=== PATIENT | female | born 1935 | race Caucasian/White ===

== ENCOUNTER 2021-03-23 21:53 | Inpatient (IN) | payer MEDICARE, BC ==
[2021-03-23 23:12] LABS: ANION GAP 11.1 meq/L (7-15); CHLORIDE,CL 107 mmol/L (98-107); SODIUM,NA 142 mmol/L (136-145)
--- NOTE | 2021-03-23 23:25 | EDM.PDOC ---
ED HPI GENERAL MEDICAL PROBLEM - General Chief Complaint: General Stated Complaint: weakness Time Seen by Provider: 03/23/21 22:05 Source of Information: Reports: Patient, Family History Limitations: Reports: No Limitations - History of Present Illness INITIAL COMMENTS - FREE TEXT/NARRATIVE: Patient brought to ER with complaint of weakness for last week. Usually can get around home reasonably well with a walker. Now has to get assistance with getting up/ADLs and can't go more than a few steps without needing to stop and rest. Similar episode happened around a year ago but resolved on own with no other intervention. Did not seek medical help at that time. No other specific changes noted by family or patient. She did vomit once today but blamed it on the [employer] her daughter gave her to eat. Lives with daughter. Patient has lost over 50 pounds gradually over the past few years, is not trying to lose weight. No fevers/chills. No HEENT changes/headaches/URI complaints/visual changes No new SOB/cough/pleuritic pain No chest pain/palpitations/dizziness/worsening edema. Has chronic lower leg edema bilaterally. No other vomiting. No diarrhea/bowel changes/blood in stool No UTI complaints/hematuria/abdominal pain No new limb pain but has history of rheumatoid arthritis and feels that has been acting up a bit more lately No focal neuro changes noted. Did run out of her Methylprednisolone a few months ago and restarted her usual 4mg dose around 6 days ago. - Related Data Allergies Allergy/AdvReac Type Severity Reaction Status Date / Time Influenza Virus Vaccines Allergy Swelling Verified 03/24/21 00:47 morphine Allergy Vomiting Verified 03/23/21 23:47 tramadol Allergy Nausea and Verified 03/24/21 00:47 Vomiting environmental allergies Allergy Sneezing Uncoded 03/24/21 00:47 Home Meds: Home Meds Furosemide [Lasix] 20 mg PO DAILY PRN 03/23/21 [History] Hydroxychloroquine [Plaquenil] 200 mg PO DAILY 03/23/21 [History] hydrALAZINE [Apresoline] 25 mg PO DAILY 03/23/21 [History] methylPREDNISolone [Methylprednisolone] 4 mg PO DAILY 03/23/21 [History] Past Medical History Cardiovascular History: Reports: Other (See Below) (chronic lower extremity edema bilaterally) Genitourinary History: Reports: Chronic Renal Insuffiency Musculoskeletal History: Reports: Osteoarthritis, RA, Other (See Below) (chronic weakness) Endocrine/Metabolic History: Reports: Diabetes, Type II Hematologic History: Reports: B12 Deficiency, Blood Transfusion(s), Other (See Below) (anemia of chronic disease and pernicious anemia) Oncologic (Cancer) History: Reports: Breast Social & Family History - Family History Family Medical History: No Pertinent Family History - Tobacco Use Tobacco Use Status *Q: Never Tobacco User - Caffeine Use Caffeine Use: Reports: None - Alcohol Use Alcohol Use History: No - Recreational Drug Use Recreational Drug Use: No Drug Use in Last 12 Months: No ED ROS GENERAL - Review of Systems Review Of Systems: Comprehensive ROS is negative, except as noted in HPI. ED EXAM, GENERAL - Physical Exam Exam: See Below Exam Limited By: No Limitations General Appearance: Alert, No Apparent Distress Eye Exam: Bilateral Eye: EOMI, PERRL Ears: Normal External Exam, Normal Canal, Hearing Grossly Normal Nose: No: Nasal Deformity, Nasal Swelling, Nasal Drainage Throat/Mouth: Normal Lips, Normal Voice, No Airway Compromise Head: Atraumatic, Normocephalic Neck: Normal Inspection, Supple, Non-Tender, Full Range of Motion. No: Lymphadenopathy (L), Lymphadenopathy (R) Respiratory/Chest: No Respiratory Distress, No Accessory Muscle Use, Chest Non- Tender, Wheezing (very minimal wheeze noted right anterior lung) Cardiovascular: Regular Rate, Rhythm, No Murmur GI/Abdominal: Normal Bowel Sounds, Soft, Non-Tender, No Distention (Female) Exam: Deferred Rectal (Female) Exam: Deferred Back Exam: No: CVA Tenderness (L), CVA Tenderness (R), Muscle Spasm, Paraspinal Tenderness, Vertebral Tenderness Extremities: Non-Tender, Normal Capillary Refill, Pedal Edema Neurological: Oriented, Normal Cognition, Other (equal tone/strength bilaterally) Psychiatric: Normal Affect, Normal Mood Skin Exam: Warm, Dry, Intact, Other (pale) Course - Vital Signs Last Recorded V/S: Last Vital Signs Temp 36.9 C 03/23/21 22:10 Pulse 78 03/23/21 22:10 Resp 18 03/23/21 22:10 BP 124/69 03/23/21 22:10 Pulse Ox 99 03/23/21 22:10 - Orders/Labs/Meds Orders: Active Orders 24 hr Category Date Time Status EKG Documentation Completion [RC] ASDIRECTED Care 03/23/21 23:16 Ordered Chest 2V [CR] Stat Exams 03/23/21 22:05 Taken CORONAVIRUS COVID-19 CHANEL [MOLEC] Stat Lab 03/23/21 23:15 Received HEPATITIS PANEL (4) [REF] Routine Lab 03/23/21 23:30 Ordered Isolation [COMM] Routine Oth 03/23/21 22:08 Active EKG 12 Lead [EK] Routine Ther 03/23/21 23:16 Ordered Labs: Laboratory Tests 03/23/21 03/23/21 03/23/21 Range/Units 22:40 22:40 22:40 WBC 16.4 H (4.0-10.2) K/uL RBC 3.21 L (3.77-5.09) M/uL Hgb 10.6 L (11.7-15.5) g/dL Hct 33.3 L (34.0-46.0) % MCV 103.7 H (84.0-98.0) fL MCH 33.0 (28.2-33.3) pg MCHC 31.8 (31.7-36.0) g/dL RDW 12.9 (11.2-14.1) % Plt Count 212 (150-350) K/uL Neut % (Auto) 90.5 H (45.0-80.0) % Lymph % (Auto) 4.3 L (10.0-50.0) % Ralls % (Auto) 5.1 (2.0-14.0) % Eos % (Auto) 0.0 (0.0-5.0) % Baso % (Auto) 0.1 (0.0-2.0) % Neut # (Auto) 14.81 H (1.40-7.00) K/uL Lymph # (Auto) 0.70 (0.50-3.50) K/uL Ralls # (Auto) 0.83 (0.00-1.00) K/uL Eos # (Auto) 0.00 (0.00-0.50) K/uL Baso # (Auto) 0.01 (0.00-0.20) K/uL Sodium 142 (136-145) mmol/L Potassium 4.5 (3.5-5.1) mmol/L Chloride 107 (98-107) mmol/L Carbon Dioxide 23.9 (21.0-32.0) mmol/L Anion Gap 11.1 (7-15) meq/L BUN 29 H (7-18) mg/dL Creatinine 1.61 H (0.51-1.17) mg/dL Est Cr Clr Drug Dosing TNP Estimated GFR (MDRD) 30 mL/min Glucose 121 H (70-99) mg/dL Lactic Acid 1.6 (0.4-2.0) mmol/L Calcium 8.8 (8.5-10.1) mg/dL Magnesium 1.6 L (1.8-2.4) mg/dL Total Bilirubin 3.3 H (0.2-1.0) mg/dL AST 192 H (15-37) U/L ALT 153 H (12-78) U/L Alkaline Phosphatase 192 H (46-116) IU/L Troponin I High Sens 67 H* (<=51) ng/L NT-Pro-B Natriuret Pep 17696 H (0-125) pg/mL Total Protein 6.6 (6.4-8.2) g/dL Albumin 2.9 L (3.4-5.0) g/dL Amylase (25-115) U/L Lipase (73-393) U/L TSH, Ultra Sensitive (0.358-3.740) mIU/mL Specimen Type Urine Color Urine Appearance Urine pH (5.0-9.0) Ur Specific [place] (1.005-1.030) Urine Protein (NEGATIVE) mg/dL Urine Glucose (UA) (NEGATIVE) mg/dL Urine Ketones (NEGATIVE) mg/dL Urine Occult Blood (NEGATIVE) Urine Nitrite (NEGATIVE) Urine Bilirubin (NEGATIVE) Urine Urobilinogen (0.2-1.0) E.U./dL Ur Leukocyte Esterase (NEGATIVE) Urine RBC /HPF Urine WBC /HPF Ur Epithelial Cells /LPF Urine Bacteria (NONE TO FEW) /HPF SARS-CoV-2 Ag (Rapid) (NEGATIVE) 03/23/21 03/23/21 03/23/21 Range/Units 22:40 22:40 22:40 WBC (4.0-10.2) K/uL RBC (3.77-5.09) M/uL Hgb (11.7-15.5) g/dL Hct (34.0-46.0) % MCV (84.0-98.0) fL MCH (28.2-33.3) pg MCHC (31.7-36.0) g/dL RDW (11.2-14.1) % Plt Count (150-350) K/uL Neut % (Auto) (45.0-80.0) % Lymph % (Auto) (10.0-50.0) % Ralls % (Auto) (2.0-14.0) % Eos % (Auto) (0.0-5.0) % Baso % (Auto) (0.0-2.0) % Neut # (Auto) (1.40-7.00) K/uL Lymph # (Auto) (0.50-3.50) K/uL Ralls # (Auto) (0.00-1.00) K/uL Eos # (Auto) (0.00-0.50) K/uL Baso # (Auto) (0.00-0.20) K/uL Sodium (136-145) mmol/L Potassium (3.5-5.1) mmol/L Chloride (98-107) mmol/L Carbon Dioxide (21.0-32.0) mmol/L Anion Gap (7-15) meq/L BUN (7-18) mg/dL Creatinine (0.51-1.17) mg/dL Est Cr Clr Drug Dosing Estimated GFR (MDRD) mL/min Glucose (70-99) mg/dL Lactic Acid (0.4-2.0) mmol/L Calcium (8.5-10.1) mg/dL Magnesium (1.8-2.4) mg/dL Total Bilirubin (0.2-1.0) mg/dL AST (15-37) U/L ALT (12-78) U/L Alkaline Phosphatase (46-116) IU/L Troponin I High Sens (<=51) ng/L NT-Pro-B Natriuret Pep (0-125) pg/mL Total Protein (6.4-8.2) g/dL Albumin (3.4-5.0) g/dL Amylase > 650 H (25-115) U/L Lipase > 1500 H (73-393) U/L TSH, Ultra Sensitive 0.986 (0.358-3.740) mIU/mL Specimen Type Urine Color Urine Appearance Urine pH (5.0-9.0) Ur Specific [place] (1.005-1.030) Urine Protein (NEGATIVE) mg/dL Urine Glucose (UA) (NEGATIVE) mg/dL Urine Ketones (NEGATIVE) mg/dL Urine Occult Blood (NEGATIVE) Urine Nitrite (NEGATIVE) Urine Bilirubin (NEGATIVE) Urine Urobilinogen (0.2-1.0) E.U./dL Ur Leukocyte Esterase (NEGATIVE) Urine RBC /HPF Urine WBC /HPF Ur Epithelial Cells /LPF Urine Bacteria (NONE TO FEW) /HPF SARS-CoV-2 Ag (Rapid) (NEGATIVE) 03/23/21 03/23/21 Range/Units 23:15 23:20 WBC (4.0-10.2) K/uL RBC (3.77-5.09) M/uL Hgb (11.7-15.5) g/dL Hct (34.0-46.0) % MCV (84.0-98.0) fL MCH (28.2-33.3) pg MCHC (31.7-36.0) g/dL RDW (11.2-14.1) % Plt Count (150-350) K/uL Neut % (Auto) (45.0-80.0) % Lymph % (Auto) (10.0-50.0) % Ralls % (Auto) (2.0-14.0) % Eos % (Auto) (0.0-5.0) % Baso % (Auto) (0.0-2.0) % Neut # (Auto) (1.40-7.00) K/uL Lymph # (Auto) (0.50-3.50) K/uL Ralls # (Auto) (0.00-1.00) K/uL Eos # (Auto) (0.00-0.50) K/uL Baso # (Auto) (0.00-0.20) K/uL Sodium (136-145) mmol/L Potassium (3.5-5.1) mmol/L Chloride (98-107) mmol/L Carbon Dioxide (21.0-32.0) mmol/L Anion Gap (7-15) meq/L BUN (7-18) mg/dL Creatinine (0.51-1.17) mg/dL Est Cr Clr Drug Dosing Estimated GFR (MDRD) mL/min Glucose (70-99) mg/dL Lactic Acid (0.4-2.0) mmol/L Calcium (8.5-10.1) mg/dL Magnesium (1.8-2.4) mg/dL Total Bilirubin (0.2-1.0) mg/dL AST (15-37) U/L ALT (12-78) U/L Alkaline Phosphatase (46-116) IU/L Troponin I High Sens (<=51) ng/L NT-Pro-B Natriuret Pep (0-125) pg/mL Total Protein (6.4-8.2) g/dL Albumin (3.4-5.0) g/dL Amylase (25-115) U/L Lipase (73-393) U/L TSH, Ultra Sensitive (0.358-3.740) mIU/mL Specimen Type Urinblad Urine Color Dark yellow Urine Appearance Slightly cloudy Urine pH 5.0 (5.0-9.0) Ur Specific [place] 1.025 (1.005-1.030) Urine Protein 30 H (NEGATIVE) mg/dL Urine Glucose (UA) Negative (NEGATIVE) mg/dL Urine Ketones Trace H (NEGATIVE) mg/dL Urine Occult Blood Trace-lysed H (NEGATIVE) Urine Nitrite Positive H (NEGATIVE) Urine Bilirubin Small H (NEGATIVE) Urine Urobilinogen 0.2 (0.2-1.0) E.U./dL Ur Leukocyte Esterase Negative (NEGATIVE) Urine RBC 0-5 /HPF Urine WBC 0-5 /HPF Ur Epithelial Cells Few /LPF Urine Bacteria Many H (NONE TO FEW) /HPF SARS-CoV-2 Ag (Rapid) Negative (NEGATIVE) - Radiology Interpretation Free Text/Narrative:: No acute focal infiltrates noted on chest xray. Heart appears mildly enlarged. No acute fluid overload noted. - Re-Assessments/Exams Free Text/Narrative Re-Assessment/Exam: 03/24/21 00:26 Xray unremarkable for acute changes. Vital signs stable. Normal lactic acid. Negative influenza/Covid. UA negative for UTI Multiple abnormalities noted on labs: WBC 16.4 Cr 1.61 (1.43 01/04/21) AST 192 ALT 153 Alk Phos 192 Total Bili 3.3 (all normal when tested two months ago) Amylase > 650 and Lipase>1500 Trop mildly elevated at 67 ProBNP 56420 Patient denies previous diagnosis of CHF/no history of cardiac echo Patient denies abdominal pain/fever. Did have the episode of emesis earlier today. Given the elevated LFTs/amylase and lipase patient appears to have pancreatitis. Suspect minimal elevation in troponin secondary to CHF. Pt denies angina/chest pain complaints. Will add EKG and order serial troponins. Given patient's history of cancer and slow weight loss/painless pancreatitis/increasing weakness CT scan for further evaluation would be ideal. Plan at this time is to admit to inpatient and provide IV fluids. This should help improve creatinine level and allow a safer CT scan given pt's chronic renal disease. Patient and family agreeable with plan. Consult PT/OT for eval on Thursday. Departure - Departure Time of Disposition: 00:35 Disposition: Admitted As Inpatient 65 Condition: Good Clinical Impression: Hepatitis Pancreatitis Qualifiers: Chronicity: acute Pancreatitis type: unspecified pancreatitis type Acute pancreatitis complication: unspecified Qualified Code(s): K85.90 - Acute pancreatitis without necrosis or infection, unspecified - Discharge Information *PRESCRIPTION DRUG MONITORING PROGRAM REVIEWED*: Not Applicable *COPY OF PRESCRIPTION DRUG MONITORING REPORT IN PATIENT [place]: Not Applicable Forms: ED Department Discharge Sepsis Event Note (ED) - Focused Exam Vital Signs: Vital Signs Temp Pulse Resp BP Pulse Ox 03/23/21 22:10 36.9 C 78 18 124/69 99 - Problem List & Annotations (1) Pancreatitis SNOMED Code(s): 12717555 Code(s): K85.90 - ACUTE PANCREATITIS WITHOUT NECROSIS OR INFECTION, UNSP Status: Acute Priority: High Current Visit: Yes Onset Date: ~03/17/21 Annotation/Comment:: Elevated amylase/lipase and LFTs. Will place patient NPO overnight and give IV fluids. Planned CT study of chest/abdomen in AM for further evaluation Qualifiers: Chronicity: acute Pancreatitis type: unspecified pancreatitis type Acute pancreatitis complication: unspecified Qualified Code(s): K85.90 - Acute pancreatitis without necrosis or infection, unspecified (2) Hepatitis SNOMED Code(s): 496062746 Code(s): K75.9 - INFLAMMATORY LIVER DISEASE, UNSPECIFIED Status: Acute Priority: High Current Visit: Yes Annotation/Comment:: as above. Hepatitis panel has been ordered. (3) Elevated troponin SNOMED Code(s): 669997892, 622264357, 042399578 Code(s): R77.8 - OTHER SPECIFIED ABNORMALITIES OF PLASMA PROTEINS Status: Acute Priority: High Current Visit: Yes Annotation/Comment:: Minimal elevation of troponin. Patient denies chest pain/anginal symptoms. Suspect it is elevated secondary to CHF. Will order serial troponins/EKG and continue to monitor (4) CHF (congestive heart failure) SNOMED Code(s): 74595758 Code(s): I50.9 - HEART FAILURE, UNSPECIFIED Status: Chronic Priority: Low Current Visit: Yes Annotation/Comment:: No previous diagnosis of CHF per patient. She is supposed to be taking Lasix however and rarely takes it as prescribed. Has significantly elevated ProBNP and chronic lower extremity edema. No evidence of acute increased fluid overload however. No cardiac echo found on her [facility] chart. Patient will need to be scheduled for cardiac echo. Regular lasix to be ordered during inpatient stay with close attention to potential worsening of BUN/Cr. Qualifiers: Heart failure type: unspecified Heart failure chronicity: chronic Qualified Code(s): I50.9 - Heart failure, unspecified (5) Rheumatoid arthritis SNOMED Code(s): 07827597 Code(s): M06.9 - RHEUMATOID ARTHRITIS, UNSPECIFIED Status: Chronic Priority: Low Current Visit: Yes Annotation/Comment:: Continue home medications. Mild worsening of symptoms this past week. Just was restarted on steroids. Qualifiers: Rheumatoid arthritis location: multiple sites Rheumatoid factor presence: unspecified presence Qualified Code(s): M06.9 - Rheumatoid arthritis, unspecified (6) Chronic kidney disease SNOMED Code(s): 490666095 Code(s): N18.9 - CHRONIC KIDNEY DISEASE, UNSPECIFIED Status: Chronic Priority: Medium Current Visit: Yes Annotation/Comment:: Creatinine 1.61 this evening. Will give IV fluids overnight prior to planned CT of chest and abdomen in AM. Recheck creatinine in AM. Qualifiers: Chronic kidney disease stage: stage 3 (moderate) (7) Diabetes mellitus type 2, noninsulin dependent SNOMED Code(s): 32751798 Code(s): E11.9 - TYPE 2 DIABETES MELLITUS WITHOUT COMPLICATIONS Status: Chronic Priority: Low Current Visit: Yes Annotation/Comment:: Accuch ecks/monitor trends. (8) Anemia of chronic disease SNOMED Code(s): 495171429 Code(s): D63.8 - ANEMIA IN OTHER CHRONIC DISEASES CLASSIFIED ELSEWHERE Status: Chronic Priority: Low Current Visit: Yes Annotation/Comment:: Sta ble per history. (9) Pernicious anemia SNOMED Code(s): 28607960 Code(s): D51.0 - VITAMIN B12 DEFIC ANEMIA DUE TO INTRINSIC FACTOR DEFICIENCY Status: Chronic Priority: Low Current Visit: Yes Annotation/Comment:: Stable per history. Hgb 11.26 December 2020. 10.6 today (10) Weakness SNOMED Code(s): 58700071 Code(s): R53.1 - WEAKNESS Status: Chronic Priority: Medium Current Visit: Yes Annotation/Comment:: Chronic weakness that signficantly worsened this past week. PT and OT to assess Thursday. Suspect acute worsening is related to pancreatitis. (11) Urinary bladder incontinence SNOMED Code(s): 990053861 Code(s): R32 - UNSPECIFIED URINARY INCONTINENCE Status: Chronic Priority: Low Current Visit: Yes Annotation/Comment:: Patient wears briefs and they do get wet. Has some redness and irritation in jonas area. Will have nursing apply Nystatin/Triamcinolone topically and assess for response. Qualifiers: Urinary Incontinence type: mixed stress and urge incontinence Qualified Code(s): N39.46 - Mixed incontinence - Problem List Review Problem List Initiated/Reviewed/Updated: Yes - My Orders Last 24 Hours: My Active Orders 03/23/21 22:05 Chest 2V [CR] Stat 03/23/21 22:08 Isolation [COMM] Routine 03/23/21 23:15 CORONAVIRUS COVID-19 CHANEL [MOLEC] Stat 03/23/21 23:16 EKG Documentation Completion [RC] ASDIRECTED EKG 12 Lead [EK] Routine 03/23/21 23:30 HEPATITIS PANEL (4) [REF] Routine - Assessment/Plan Admission H&P: Please use this note as an admission H&P Last 24 Hours: My Active Orders 03/23/21 22:05 Chest 2V [CR] Stat 03/23/21 22:08 Isolation [COMM] Routine 03/23/21 23:15 CORONAVIRUS COVID-19 CHANEL [MOLEC] Stat 03/23/21 23:16 EKG Documentation Completion [RC] ASDIRECTED EKG 12 Lead [EK] Routine 03/23/21 23:30 HEPATITIS PANEL (4) [REF] Routine Assessment:: as above. Plan: as above. IV fluids overnight and planned CT scan in AM for further evaluation. Anticipate 3-4 day stay with possible need for Swing bed depending upon clinical course.
[2021-03-24] MEDS ORDERED: Ondansetron 4 MG/2 ML SDV IVPUSH PRN (00:56)
[2021-03-24] MEDS ORDERED: Dextrose 5%-0.45% NaCl 1,000 ML IV SCH (01:00)
[2021-03-24] MEDS ORDERED: Sodium Chloride 0.9% 10 ML Syringe FLUSH PRN (04:33)
[2021-03-24] MEDS: Nystatin Crm 30 GM Tube TOP SCH ×3 (05:24→21:46)
[2021-03-24] MEDS: hydrALAZINE 50 MG Tab PO SCH (09:30)
[2021-03-24] MEDS: Hydroxychloroquine 200 MG Tab PO SCH (09:31)
[2021-03-24 09:36] LABS: ANION GAP 11.8 meq/L (7-15)
[2021-03-24] MEDS ORDERED: Iopamidol 612 MG/ML 100 ML Bottle IVPUSH ONE (11:01)
--- NOTE | 2021-03-24 17:32 | PCM.PN ---
- General Info Date of Service: 03/24/21 Admission Dx/Problem (Free Text): Pancreatitis, weakness Subjective Update: Pt feels better today. Has improved appetite. No new pain. Functional Status: Reports: Pain Controlled, Tolerating Diet, Ambulating (with assistance). Denies: New Symptoms - Review of Systems General: Reports: Weakness, Fatigue. Denies: Fever, Malaise, Chills, Night Sweats HEENT: Reports: No Symptoms Pulmonary: Reports: No Symptoms. Denies: Shortness of Breath Cardiovascular: Reports: No Symptoms. Denies: Chest Pain, Palpitations Gastrointestinal: Reports: Other (only has RUQ pain with palpation, not at rest). Denies: Diarrhea, Melena, Nausea, Vomiting Genitourinary: Reports: No Symptoms Musculoskeletal: Reports: Other (no acute changes from baseline) Skin: Reports: Other (no acute changes) Neurological: Reports: No Symptoms Psychiatric: Reports: No Symptoms - Patient Data Vitals - Most Recent: Last Vital Signs Temp 36.4 C 03/24/21 08:00 Pulse 76 03/24/21 08:00 Resp 20 03/24/21 08:00 BP 121/63 03/24/21 09:30 Pulse Ox 94 L 03/24/21 08:00 Weight - Most Recent: 65.771 kg I&O - Last 24 Hours: Intake & Output 03/24/21 03/24/21 03/24/21 06:59 14:59 22:59 Intake Total 150 Output Total 300 Balance -150 Lab Results Last 24 Hours: Laboratory Results - last 24 hr 03/23/21 03/23/21 03/23/21 Range/Units 22:40 22:40 22:40 WBC 16.4 H (4.0-10.2) K/uL RBC 3.21 L (3.77-5.09) M/uL Hgb 10.6 L (11.7-15.5) g/dL Hct 33.3 L (34.0-46.0) % MCV 103.7 H (84.0-98.0) fL MCH 33.0 (28.2-33.3) pg MCHC 31.8 (31.7-36.0) g/dL RDW 12.9 (11.2-14.1) % Plt Count 212 (150-350) K/uL Neut % (Auto) 90.5 H (45.0-80.0) % Lymph % (Auto) 4.3 L (10.0-50.0) % [place] % (Auto) 5.1 (2.0-14.0) % Eos % (Auto) 0.0 (0.0-5.0) % Baso % (Auto) 0.1 (0.0-2.0) % Neut # (Auto) 14.81 H (1.40-7.00) K/uL Lymph # (Auto) 0.70 (0.50-3.50) K/uL [place] # (Auto) 0.83 (0.00-1.00) K/uL Eos # (Auto) 0.00 (0.00-0.50) K/uL Baso # (Auto) 0.01 (0.00-0.20) K/uL Sodium 142 (136-145) mmol/L Potassium 4.5 (3.5-5.1) mmol/L Chloride 107 (98-107) mmol/L Carbon Dioxide 23.9 (21.0-32.0) mmol/L Anion Gap 11.1 (7-15) meq/L BUN 29 H (7-18) mg/dL Creatinine 1.61 H (0.51-1.17) mg/dL Est Cr Clr Drug Dosing TNP Estimated GFR (MDRD) 30 mL/min Glucose 121 H (70-99) mg/dL POC Glucose (70-99) mg/dL Lactic Acid 1.6 (0.4-2.0) mmol/L Calcium 8.8 (8.5-10.1) mg/dL Magnesium 1.6 L (1.8-2.4) mg/dL Total Bilirubin 3.3 H (0.2-1.0) mg/dL AST 192 H (15-37) U/L ALT 153 H (12-78) U/L Alkaline Phosphatase 192 H (46-116) IU/L Troponin I High Sens 67 H* (<=51) ng/L NT-Pro-B Natriuret Pep 05102 H (0-125) pg/mL Total Protein 6.6 (6.4-8.2) g/dL Albumin 2.9 L (3.4-5.0) g/dL Amylase (25-115) U/L Lipase (73-393) U/L TSH, Ultra Sensitive (0.358-3.740) mIU/mL Specimen Type Urine Color Urine Appearance Urine pH (5.0-9.0) Ur Specific [place] (1.005-1.030) Urine Protein (NEGATIVE) mg/dL Urine Glucose (UA) (NEGATIVE) mg/dL Urine Ketones (NEGATIVE) mg/dL Urine Occult Blood (NEGATIVE) Urine Nitrite (NEGATIVE) Urine Bilirubin (NEGATIVE) Urine Urobilinogen (0.2-1.0) E.U./dL Ur Leukocyte Esterase (NEGATIVE) Urine RBC /HPF Urine WBC /HPF Ur Epithelial Cells /LPF Urine Bacteria (NONE TO FEW) /HPF SARS-CoV-2 Ag (Rapid) (NEGATIVE) 03/23/21 03/23/21 03/23/21 Range/Units 22:40 22:40 22:40 WBC (4.0-10.2) K/uL RBC (3.77-5.09) M/uL Hgb (11.7-15.5) g/dL Hct (34.0-46.0) % MCV (84.0-98.0) fL MCH (28.2-33.3) pg MCHC (31.7-36.0) g/dL RDW (11.2-14.1) % Plt Count (150-350) K/uL Neut % (Auto) (45.0-80.0) % Lymph % (Auto) (10.0-50.0) % [place] % (Auto) (2.0-14.0) % Eos % (Auto) (0.0-5.0) % Baso % (Auto) (0.0-2.0) % Neut # (Auto) (1.40-7.00) K/uL Lymph # (Auto) (0.50-3.50) K/uL [place] # (Auto) (0.00-1.00) K/uL Eos # (Auto) (0.00-0.50) K/uL Baso # (Auto) (0.00-0.20) K/uL Sodium (136-145) mmol/L Potassium (3.5-5.1) mmol/L Chloride (98-107) mmol/L Carbon Dioxide (21.0-32.0) mmol/L Anion Gap (7-15) meq/L BUN (7-18) mg/dL Creatinine (0.51-1.17) mg/dL Est Cr Clr Drug Dosing Estimated GFR (MDRD) mL/min Glucose (70-99) mg/dL POC Glucose (70-99) mg/dL Lactic Acid (0.4-2.0) mmol/L Calcium (8.5-10.1) mg/dL Magnesium (1.8-2.4) mg/dL Total Bilirubin (0.2-1.0) mg/dL AST (15-37) U/L ALT (12-78) U/L Alkaline Phosphatase (46-116) IU/L Troponin I High Sens (<=51) ng/L NT-Pro-B Natriuret Pep (0-125) pg/mL Total Protein (6.4-8.2) g/dL Albumin (3.4-5.0) g/dL Amylase > 650 H (25-115) U/L Lipase > 1500 H (73-393) U/L TSH, Ultra Sensitive 0.986 (0.358-3.740) mIU/mL Specimen Type Urine Color Urine Appearance Urine pH (5.0-9.0) Ur Specific [place] (1.005-1.030) Urine Protein (NEGATIVE) mg/dL Urine Glucose (UA) (NEGATIVE) mg/dL Urine Ketones (NEGATIVE) mg/dL Urine Occult Blood (NEGATIVE) Urine Nitrite (NEGATIVE) Urine Bilirubin (NEGATIVE) Urine Urobilinogen (0.2-1.0) E.U./dL Ur Leukocyte Esterase (NEGATIVE) Urine RBC /HPF Urine WBC /HPF Ur Epithelial Cells /LPF Urine Bacteria (NONE TO FEW) /HPF SARS-CoV-2 Ag (Rapid) (NEGATIVE) 03/23/21 03/23/21 03/24/21 Range/Units 23:15 23:20 08:00 WBC (4.0-10.2) K/uL RBC (3.77-5.09) M/uL Hgb (11.7-15.5) g/dL Hct (34.0-46.0) % MCV (84.0-98.0) fL MCH (28.2-33.3) pg MCHC (31.7-36.0) g/dL RDW (11.2-14.1) % Plt Count (150-350) K/uL Neut % (Auto) (45.0-80.0) % Lymph % (Auto) (10.0-50.0) % [place] % (Auto) (2.0-14.0) % Eos % (Auto) (0.0-5.0) % Baso % (Auto) (0.0-2.0) % Neut # (Auto) (1.40-7.00) K/uL Lymph # (Auto) (0.50-3.50) K/uL [place] # (Auto) (0.00-1.00) K/uL Eos # (Auto) (0.00-0.50) K/uL Baso # (Auto) (0.00-0.20) K/uL Sodium (136-145) mmol/L Potassium (3.5-5.1) mmol/L Chloride (98-107) mmol/L Carbon Dioxide (21.0-32.0) mmol/L Anion Gap (7-15) meq/L BUN (7-18) mg/dL Creatinine (0.51-1.17) mg/dL Est Cr Clr Drug Dosing Estimated GFR (MDRD) mL/min Glucose (70-99) mg/dL POC Glucose 83 (70-99) mg/dL Lactic Acid (0.4-2.0) mmol/L Calcium (8.5-10.1) mg/dL Magnesium (1.8-2.4) mg/dL Total Bilirubin (0.2-1.0) mg/dL AST (15-37) U/L ALT (12-78) U/L Alkaline Phosphatase (46-116) IU/L Troponin I High Sens (<=51) ng/L NT-Pro-B Natriuret Pep (0-125) pg/mL Total Protein (6.4-8.2) g/dL Albumin (3.4-5.0) g/dL Amylase (25-115) U/L Lipase (73-393) U/L TSH, Ultra Sensitive (0.358-3.740) mIU/mL Specimen Type Urinblad Urine Color Dark yellow Urine Appearance Slightly cloudy Urine pH 5.0 (5.0-9.0) Ur Specific [place] 1.025 (1.005-1.030) Urine Protein 30 H (NEGATIVE) mg/dL Urine Glucose (UA) Negative (NEGATIVE) mg/dL Urine Ketones Trace H (NEGATIVE) mg/dL Urine Occult Blood Trace-lysed H (NEGATIVE) Urine Nitrite Positive H (NEGATIVE) Urine Bilirubin Small H (NEGATIVE) Urine Urobilinogen 0.2 (0.2-1.0) E.U./dL Ur Leukocyte Esterase Negative (NEGATIVE) Urine RBC 0-5 /HPF Urine WBC 0-5 /HPF Ur Epithelial Cells Few /LPF Urine Bacteria Many H (NONE TO FEW) /HPF SARS-CoV-2 Ag (Rapid) Negative (NEGATIVE) 03/24/21 03/24/21 03/24/21 Range/Units 08:40 08:40 08:40 WBC 12.5 H (4.0-10.2) K/uL RBC 2.58 L (3.77-5.09) M/uL Hgb 8.5 L D (11.7-15.5) g/dL Hct 26.7 L (34.0-46.0) % MCV 103.5 H (84.0-98.0) fL MCH 32.9 (28.2-33.3) pg MCHC 31.8 (31.7-36.0) g/dL RDW 12.7 (11.2-14.1) % Plt Count 163 (150-350) K/uL Neut % (Auto) 80.5 H (45.0-80.0) % Lymph % (Auto) 13.7 (10.0-50.0) % [place] % (Auto) 5.5 (2.0-14.0) % Eos % (Auto) 0.2 (0.0-5.0) % Baso % (Auto) 0.1 (0.0-2.0) % Neut # (Auto) 10.03 H (1.40-7.00) K/uL Lymph # (Auto) 1.71 (0.50-3.50) K/uL [place] # (Auto) 0.69 (0.00-1.00) K/uL Eos # (Auto) 0.03 (0.00-0.50) K/uL Baso # (Auto) 0.01 (0.00-0.20) K/uL Sodium 142 (136-145) mmol/L Potassium 4.1 (3.5-5.1) mmol/L Chloride 109 H (98-107) mmol/L Carbon Dioxide 25.3 (21.0-32.0) mmol/L Anion Gap 11.8 (7-15) meq/L BUN 31 H (7-18) mg/dL Creatinine 1.35 H (0.51-1.17) mg/dL Est Cr Clr Drug Dosing 28.00 Estimated GFR (MDRD) 37 mL/min Glucose 73 (70-99) mg/dL POC Glucose (70-99) mg/dL Lactic Acid (0.4-2.0) mmol/L Calcium 8.0 L (8.5-10.1) mg/dL Magnesium (1.8-2.4) mg/dL Total Bilirubin 1.0 (0.2-1.0) mg/dL AST 107 H (15-37) U/L ALT 114 H (12-78) U/L Alkaline Phosphatase 158 H (46-116) IU/L Troponin I High Sens 65 H* (<=51) ng/L NT-Pro-B Natriuret Pep (0-125) pg/mL Total Protein 4.8 L (6.4-8.2) g/dL Albumin 2.3 L (3.4-5.0) g/dL Amylase (25-115) U/L Lipase (73-393) U/L TSH, Ultra Sensitive (0.358-3.740) mIU/mL Specimen Type Urine Color Urine Appearance Urine pH (5.0-9.0) Ur Specific [place] (1.005-1.030) Urine Protein (NEGATIVE) mg/dL Urine Glucose (UA) (NEGATIVE) mg/dL Urine Ketones (NEGATIVE) mg/dL Urine Occult Blood (NEGATIVE) Urine Nitrite (NEGATIVE) Urine Bilirubin (NEGATIVE) Urine Urobilinogen (0.2-1.0) E.U./dL Ur Leukocyte Esterase (NEGATIVE) Urine RBC /HPF Urine WBC /HPF Ur Epithelial Cells /LPF Urine Bacteria (NONE TO FEW) /HPF SARS-CoV-2 Ag (Rapid) (NEGATIVE) 03/24/21 03/24/21 03/24/21 Range/Units 08:40 12:54 14:52 WBC (4.0-10.2) K/uL RBC (3.77-5.09) M/uL Hgb (11.7-15.5) g/dL Hct (34.0-46.0) % MCV (84.0-98.0) fL MCH (28.2-33.3) pg MCHC (31.7-36.0) g/dL RDW (11.2-14.1) % Plt Count (150-350) K/uL Neut % (Auto) (45.0-80.0) % Lymph % (Auto) (10.0-50.0) % [place] % (Auto) (2.0-14.0) % Eos % (Auto) (0.0-5.0) % Baso % (Auto) (0.0-2.0) % Neut # (Auto) (1.40-7.00) K/uL Lymph # (Auto) (0.50-3.50) K/uL [place] # (Auto) (0.00-1.00) K/uL Eos # (Auto) (0.00-0.50) K/uL Baso # (Auto) (0.00-0.20) K/uL Sodium (136-145) mmol/L Potassium (3.5-5.1) mmol/L Chloride (98-107) mmol/L Carbon Dioxide (21.0-32.0) mmol/L Anion Gap (7-15) meq/L BUN (7-18) mg/dL Creatinine (0.51-1.17) mg/dL Est Cr Clr Drug Dosing Estimated GFR (MDRD) mL/min Glucose (70-99) mg/dL POC Glucose 69 L 138 H (70-99) mg/dL Lactic Acid (0.4-2.0) mmol/L Calcium (8.5-10.1) mg/dL Magnesium (1.8-2.4) mg/dL Total Bilirubin (0.2-1.0) mg/dL AST (15-37) U/L ALT (12-78) U/L Alkaline Phosphatase (46-116) IU/L Troponin I High Sens (<=51) ng/L NT-Pro-B Natriuret Pep (0-125) pg/mL Total Protein (6.4-8.2) g/dL Albumin (3.4-5.0) g/dL Amylase > 650 H (25-115) U/L Lipase > 1500 H (73-393) U/L TSH, Ultra Sensitive (0.358-3.740) mIU/mL Specimen Type Urine Color Urine Appearance Urine pH (5.0-9.0) Ur Specific [place] (1.005-1.030) Urine Protein (NEGATIVE) mg/dL Urine Glucose (UA) (NEGATIVE) mg/dL Urine Ketones (NEGATIVE) mg/dL Urine Occult Blood (NEGATIVE) Urine Nitrite (NEGATIVE) Urine Bilirubin (NEGATIVE) Urine Urobilinogen (0.2-1.0) E.U./dL Ur Leukocyte Esterase (NEGATIVE) Urine RBC /HPF Urine WBC /HPF Ur Epithelial Cells /LPF Urine Bacteria (NONE TO FEW) /HPF SARS-CoV-2 Ag (Rapid) (NEGATIVE) Joe Results Last 24 Hours: Microbiology 03/23/21 23:15 Influenza Type A Antigen Screen - Final Nasal Aspirate, Unspecified NEGATIVE INFLUENZA A VIRUS AG REFERENCE RANGE: NEGATIVE Influenza Type B Antigen Screen - Final NEGATIVE INFLUENZA B VIRUS AG REFERENCE RANGE: NEGATIVE Med Orders - Current: Current Medications Enoxaparin Sodium (Enoxaparin 30 Mg/0.3 Ml Syringe) 30 mg SUBCUT DAILY [facility] Furosemide (Furosemide 40 Mg/4 Ml Vial) 40 mg IVPUSH DAILY [facility] Hydralazine HCl (Hydralazine 50 Mg Tab) 25 mg PO DAILY [facility] Last Admin: 03/24/21 09:30 Dose: 25 mg Documented by: Hydroxychloroquine Sulfate (Hydroxychloroquine 200 Mg Tab) 200 mg PO DAILY [facility] Last Admin: 03/24/21 09:31 Dose: 200 mg Documented by: Dextrose/Sodium Chloride (Dextrose 5%-1/2 Ns) 1,000 mls @ 70 mls/hr IV ASDIRECTED [facility] Last Admin: 03/24/21 05:15 Dose: 100 mls/hr Documented by: Magnesium Sulfate/Dextrose 1 (gm/ Premix) 100 mls @ 100 mls/hr IV ONETIME ONE Stop: 03/24/21 18:25 Methylprednisolone (Methylprednisolone 4 Mg Tab) 4 mg PO DAILY [facility] Last Admin: 03/24/21 09:31 Dose: 4 mg Documented by: Nystatin (Nystatin Crm 30 Gm Tube) 1 gm TOP BID MARGY Last Admin: 03/24/21 09:31 Dose: 1 applic Documented by: Ondansetron HCl (Ondansetron 4 Mg/2 Ml Sdv) 4 mg IVPUSH Q6H PRN PRN Reason: Nausea/Vomiting Sodium Chloride (Sodium Chloride 0.9% 10 Ml Syringe) 10 ml FLUSH ASDIRECTED PRN PRN Reason: Keep Vein Open Discontinued Medications Iopamidol (Iopamidol 612 Mg/Ml 100 Ml Bottle) 100 ml IVPUSH ONETIME ONE Stop: 03/24/21 11:02 Last Admin: 03/24/21 11:20 Dose: 100 ml Documented by: - Exam Quality Assessment: DVT Prophylaxis (Lovenox started yesterday but held today due to lower HGB and anticipated surgery) General: Alert, Oriented, Cooperative, No Acute Distress HEENT: Pupils Equal, Pupils Reactive, EOMI Neck: Supple Lungs: Clear to Auscultation, Normal Respiratory Effort Cardiovascular: Regular Rate, Regular Rhythm. No: No Murmurs GI/Abdominal Exam: Soft, No Distention, Tender (RUQ under rib margin), Abnormal Bowel Sounds (diminished throughout). No: Guarding, Rigid, Rebound (Female) Exam: Deferred Back Exam: No: CVA Tenderness (L), CVA Tenderness (R) Extremities: Non-Tender, Normal Capillary Refill Skin: Warm, Dry Neurological: No New Focal Deficit Psy/Mental Status: Alert, Normal Affect, Normal Mood #1 Interpretation EKG Date: 03/24/21 Time: 12:41 Rhythm: NSR Rate (Beats/Min): 78 [place]: LAD-Left [place] Deviation P-Wave: Present QRS: Normal ST-T: Other (unusual morphology V2) QT: Normal Comparison: NA - No Prior EKG EKG Interpretation Comments: Isolated T wave V2/unusual morphology - Patient Data Lab Results Last 24 hrs: Laboratory Results - last 24 hr 03/23/21 03/23/21 03/23/21 Range/Units 22:40 22:40 22:40 WBC 16.4 H (4.0-10.2) K/uL RBC 3.21 L (3.77-5.09) M/uL Hgb 10.6 L (11.7-15.5) g/dL Hct 33.3 L (34.0-46.0) % MCV 103.7 H (84.0-98.0) fL MCH 33.0 (28.2-33.3) pg MCHC 31.8 (31.7-36.0) g/dL RDW 12.9 (11.2-14.1) % Plt Count 212 (150-350) K/uL Neut % (Auto) 90.5 H (45.0-80.0) % Lymph % (Auto) 4.3 L (10.0-50.0) % [place] % (Auto) 5.1 (2.0-14.0) % Eos % (Auto) 0.0 (0.0-5.0) % Baso % (Auto) 0.1 (0.0-2.0) % Neut # (Auto) 14.81 H (1.40-7.00) K/uL Lymph # (Auto) 0.70 (0.50-3.50) K/uL [place] # (Auto) 0.83 (0.00-1.00) K/uL Eos # (Auto) 0.00 (0.00-0.50) K/uL Baso # (Auto) 0.01 (0.00-0.20) K/uL Sodium 142 (136-145) mmol/L Potassium 4.5 (3.5-5.1) mmol/L Chloride 107 (98-107) mmol/L Carbon Dioxide 23.9 (21.0-32.0) mmol/L Anion Gap 11.1 (7-15) meq/L BUN 29 H (7-18) mg/dL Creatinine 1.61 H (0.51-1.17) mg/dL Est Cr Clr Drug Dosing TNP Estimated GFR (MDRD) 30 mL/min Glucose 121 H (70-99) mg/dL POC Glucose (70-99) mg/dL Lactic Acid 1.6 (0.4-2.0) mmol/L Calcium 8.8 (8.5-10.1) mg/dL Magnesium 1.6 L (1.8-2.4) mg/dL Total Bilirubin 3.3 H (0.2-1.0) mg/dL AST 192 H (15-37) U/L ALT 153 H (12-78) U/L Alkaline Phosphatase 192 H (46-116) IU/L Troponin I High Sens 67 H* (<=51) ng/L NT-Pro-B Natriuret Pep 32869 H (0-125) pg/mL Total Protein 6.6 (6.4-8.2) g/dL Albumin 2.9 L (3.4-5.0) g/dL Amylase (25-115) U/L Lipase (73-393) U/L TSH, Ultra Sensitive (0.358-3.740) mIU/mL Specimen Type Urine Color Urine Appearance Urine pH (5.0-9.0) Ur Specific [place] (1.005-1.030) Urine Protein (NEGATIVE) mg/dL Urine Glucose (UA) (NEGATIVE) mg/dL Urine Ketones (NEGATIVE) mg/dL Urine Occult Blood (NEGATIVE) Urine Nitrite (NEGATIVE) Urine Bilirubin (NEGATIVE) Urine Urobilinogen (0.2-1.0) E.U./dL Ur Leukocyte Esterase (NEGATIVE) Urine RBC /HPF Urine WBC /HPF Ur Epithelial Cells /LPF Urine Bacteria (NONE TO FEW) /HPF SARS-CoV-2 Ag (Rapid) (NEGATIVE) 03/23/21 03/23/21 03/23/21 Range/Units 22:40 22:40 22:40 WBC (4.0-10.2) K/uL RBC (3.77-5.09) M/uL Hgb (11.7-15.5) g/dL Hct (34.0-46.0) % MCV (84.0-98.0) fL MCH (28.2-33.3) pg MCHC (31.7-36.0) g/dL RDW (11.2-14.1) % Plt Count (150-350) K/uL Neut % (Auto) (45.0-80.0) % Lymph % (Auto) (10.0-50.0) % [place] % (Auto) (2.0-14.0) % Eos % (Auto) (0.0-5.0) % Baso % (Auto) (0.0-2.0) % Neut # (Auto) (1.40-7.00) K/uL Lymph # (Auto) (0.50-3.50) K/uL [place] # (Auto) (0.00-1.00) K/uL Eos # (Auto) (0.00-0.50) K/uL Baso # (Auto) (0.00-0.20) K/uL Sodium (136-145) mmol/L Potassium (3.5-5.1) mmol/L Chloride (98-107) mmol/L Carbon Dioxide (21.0-32.0) mmol/L Anion Gap (7-15) meq/L BUN (7-18) mg/dL Creatinine (0.51-1.17) mg/dL Est Cr Clr Drug Dosing Estimated GFR (MDRD) mL/min Glucose (70-99) mg/dL POC Glucose (70-99) mg/dL Lactic Acid (0.4-2.0) mmol/L Calcium (8.5-10.1) mg/dL Magnesium (1.8-2.4) mg/dL Total Bilirubin (0.2-1.0) mg/dL AST (15-37) U/L ALT (12-78) U/L Alkaline Phosphatase (46-116) IU/L Troponin I High Sens (<=51) ng/L NT-Pro-B Natriuret Pep (0-125) pg/mL Total Protein (6.4-8.2) g/dL Albumin (3.4-5.0) g/dL Amylase > 650 H (25-115) U/L Lipase > 1500 H (73-393) U/L TSH, Ultra Sensitive 0.986 (0.358-3.740) mIU/mL Specimen Type Urine Color Urine Appearance Urine pH (5.0-9.0) Ur Specific [place] (1.005-1.030) Urine Protein (NEGATIVE) mg/dL Urine Glucose (UA) (NEGATIVE) mg/dL Urine Ketones (NEGATIVE) mg/dL Urine Occult Blood (NEGATIVE) Urine Nitrite (NEGATIVE) Urine Bilirubin (NEGATIVE) Urine Urobilinogen (0.2-1.0) E.U./dL Ur Leukocyte Esterase (NEGATIVE) Urine RBC /HPF Urine WBC /HPF Ur Epithelial Cells /LPF Urine Bacteria (NONE TO FEW) /HPF SARS-CoV-2 Ag (Rapid) (NEGATIVE) 03/23/21 03/23/21 03/24/21 Range/Units 23:15 23:20 08:00 WBC (4.0-10.2) K/uL RBC (3.77-5.09) M/uL Hgb (11.7-15.5) g/dL Hct (34.0-46.0) % MCV (84.0-98.0) fL MCH (28.2-33.3) pg MCHC (31.7-36.0) g/dL RDW (11.2-14.1) % Plt Count (150-350) K/uL Neut % (Auto) (45.0-80.0) % Lymph % (Auto) (10.0-50.0) % [place] % (Auto) (2.0-14.0) % Eos % (Auto) (0.0-5.0) % Baso % (Auto) (0.0-2.0) % Neut # (Auto) (1.40-7.00) K/uL Lymph # (Auto) (0.50-3.50) K/uL [place] # (Auto) (0.00-1.00) K/uL Eos # (Auto) (0.00-0.50) K/uL Baso # (Auto) (0.00-0.20) K/uL Sodium (136-145) mmol/L Potassium (3.5-5.1) mmol/L Chloride (98-107) mmol/L Carbon Dioxide (21.0-32.0) mmol/L Anion Gap (7-15) meq/L BUN (7-18) mg/dL Creatinine (0.51-1.17) mg/dL Est Cr Clr Drug Dosing Estimated GFR (MDRD) mL/min Glucose (70-99) mg/dL POC Glucose 83 (70-99) mg/dL Lactic Acid (0.4-2.0) mmol/L Calcium (8.5-10.1) mg/dL Magnesium (1.8-2.4) mg/dL Total Bilirubin (0.2-1.0) mg/dL AST (15-37) U/L ALT (12-78) U/L Alkaline Phosphatase (46-116) IU/L Troponin I High Sens (<=51) ng/L NT-Pro-B Natriuret Pep (0-125) pg/mL Total Protein (6.4-8.2) g/dL Albumin (3.4-5.0) g/dL Amylase (25-115) U/L Lipase (73-393) U/L TSH, Ultra Sensitive (0.358-3.740) mIU/mL Specimen Type Urinblad Urine Color Dark yellow Urine Appearance Slightly cloudy Urine pH 5.0 (5.0-9.0) Ur Specific [place] 1.025 (1.005-1.030) Urine Protein 30 H (NEGATIVE) mg/dL Urine Glucose (UA) Negative (NEGATIVE) mg/dL Urine Ketones Trace H (NEGATIVE) mg/dL Urine Occult Blood Trace-lysed H (NEGATIVE) Urine Nitrite Positive H (NEGATIVE) Urine Bilirubin Small H (NEGATIVE) Urine Urobilinogen 0.2 (0.2-1.0) E.U./dL Ur Leukocyte Esterase Negative (NEGATIVE) Urine RBC 0-5 /HPF Urine WBC 0-5 /HPF Ur Epithelial Cells Few /LPF Urine Bacteria Many H (NONE TO FEW) /HPF SARS-CoV-2 Ag (Rapid) Negative (NEGATIVE) 03/24/21 03/24/21 03/24/21 Range/Units 08:40 08:40 08:40 WBC 12.5 H (4.0-10.2) K/uL RBC 2.58 L (3.77-5.09) M/uL Hgb 8.5 L D (11.7-15.5) g/dL Hct 26.7 L (34.0-46.0) % MCV 103.5 H (84.0-98.0) fL MCH 32.9 (28.2-33.3) pg MCHC 31.8 (31.7-36.0) g/dL RDW 12.7 (11.2-14.1) % Plt Count 163 (150-350) K/uL Neut % (Auto) 80.5 H (45.0-80.0) % Lymph % (Auto) 13.7 (10.0-50.0) % [place] % (Auto) 5.5 (2.0-14.0) % Eos % (Auto) 0.2 (0.0-5.0) % Baso % (Auto) 0.1 (0.0-2.0) % Neut # (Auto) 10.03 H (1.40-7.00) K/uL Lymph # (Auto) 1.71 (0.50-3.50) K/uL [place] # (Auto) 0.69 (0.00-1.00) K/uL Eos # (Auto) 0.03 (0.00-0.50) K/uL Baso # (Auto) 0.01 (0.00-0.20) K/uL Sodium 142 (136-145) mmol/L Potassium 4.1 (3.5-5.1) mmol/L Chloride 109 H (98-107) mmol/L Carbon Dioxide 25.3 (21.0-32.0) mmol/L Anion Gap 11.8 (7-15) meq/L BUN 31 H (7-18) mg/dL Creatinine 1.35 H (0.51-1.17) mg/dL Est Cr Clr Drug Dosing 28.00 Estimated GFR (MDRD) 37 mL/min Glucose 73 (70-99) mg/dL POC Glucose (70-99) mg/dL Lactic Acid (0.4-2.0) mmol/L Calcium 8.0 L (8.5-10.1) mg/dL Magnesium (1.8-2.4) mg/dL Total Bilirubin 1.0 (0.2-1.0) mg/dL AST 107 H (15-37) U/L ALT 114 H (12-78) U/L Alkaline Phosphatase 158 H (46-116) IU/L Troponin I High Sens 65 H* (<=51) ng/L NT-Pro-B Natriuret Pep (0-125) pg/mL Total Protein 4.8 L (6.4-8.2) g/dL Albumin 2.3 L (3.4-5.0) g/dL Amylase (25-115) U/L Lipase (73-393) U/L TSH, Ultra Sensitive (0.358-3.740) mIU/mL Specimen Type Urine Color Urine Appearance Urine pH (5.0-9.0) Ur Specific [place] (1.005-1.030) Urine Protein (NEGATIVE) mg/dL Urine Glucose (UA) (NEGATIVE) mg/dL Urine Ketones (NEGATIVE) mg/dL Urine Occult Blood (NEGATIVE) Urine Nitrite (NEGATIVE) Urine Bilirubin (NEGATIVE) Urine Urobilinogen (0.2-1.0) E.U./dL Ur Leukocyte Esterase (NEGATIVE) Urine RBC /HPF Urine WBC /HPF Ur Epithelial Cells /LPF Urine Bacteria (NONE TO FEW) /HPF SARS-CoV-2 Ag (Rapid) (NEGATIVE) 03/24/21 03/24/21 03/24/21 Range/Units 08:40 12:54 14:52 WBC (4.0-10.2) K/uL RBC (3.77-5.09) M/uL Hgb (11.7-15.5) g/dL Hct (34.0-46.0) % MCV (84.0-98.0) fL MCH (28.2-33.3) pg MCHC (31.7-36.0) g/dL RDW (11.2-14.1) % Plt Count (150-350) K/uL Neut % (Auto) (45.0-80.0) % Lymph % (Auto) (10.0-50.0) % [place] % (Auto) (2.0-14.0) % Eos % (Auto) (0.0-5.0) % Baso % (Auto) (0.0-2.0) % Neut # (Auto) (1.40-7.00) K/uL Lymph # (Auto) (0.50-3.50) K/uL [place] # (Auto) (0.00-1.00) K/uL Eos # (Auto) (0.00-0.50) K/uL Baso # (Auto) (0.00-0.20) K/uL Sodium (136-145) mmol/L Potassium (3.5-5.1) mmol/L Chloride (98-107) mmol/L Carbon Dioxide (21.0-32.0) mmol/L Anion Gap (7-15) meq/L BUN (7-18) mg/dL Creatinine (0.51-1.17) mg/dL Est Cr Clr Drug Dosing Estimated GFR (MDRD) mL/min Glucose (70-99) mg/dL POC Glucose 69 L 138 H (70-99) mg/dL Lactic Acid (0.4-2.0) mmol/L Calcium (8.5-10.1) mg/dL Magnesium (1.8-2.4) mg/dL Total Bilirubin (0.2-1.0) mg/dL AST (15-37) U/L ALT (12-78) U/L Alkaline Phosphatase (46-116) IU/L Troponin I High Sens (<=51) ng/L NT-Pro-B Natriuret Pep (0-125) pg/mL Total Protein (6.4-8.2) g/dL Albumin (3.4-5.0) g/dL Amylase > 650 H (25-115) U/L Lipase > 1500 H (73-393) U/L TSH, Ultra Sensitive (0.358-3.740) mIU/mL Specimen Type Urine Color Urine Appearance Urine pH (5.0-9.0) Ur Specific [place] (1.005-1.030) Urine Protein (NEGATIVE) mg/dL Urine Glucose (UA) (NEGATIVE) mg/dL Urine Ketones (NEGATIVE) mg/dL Urine Occult Blood (NEGATIVE) Urine Nitrite (NEGATIVE) Urine Bilirubin (NEGATIVE) Urine Urobilinogen (0.2-1.0) E.U./dL Ur Leukocyte Esterase (NEGATIVE) Urine RBC /HPF Urine WBC /HPF Ur Epithelial Cells /LPF Urine Bacteria (NONE TO FEW) /HPF SARS-CoV-2 Ag (Rapid) (NEGATIVE) Result Diagrams: 03/24/21 08:40 03/24/21 08:40 Joe Results Last 24 hrs: Microbiology 03/23/21 23:15 Influenza Type A Antigen Screen - Final Nasal Aspirate, Unspecified NEGATIVE INFLUENZA A VIRUS AG REFERENCE RANGE: NEGATIVE Influenza Type B Antigen Screen - Final NEGATIVE INFLUENZA B VIRUS AG REFERENCE RANGE: NEGATIVE Sepsis Event Note - Evaluation Sepsis Screening Result: No Definite Risk - Focused Exam Vital Signs: Vital Signs Temp Pulse Resp BP BP Pulse Ox 03/24/21 09:30 121/63 03/24/21 08:00 36.4 C 76 20 121/63 94 L - Problem List & Annotations (1) Pancreatitis SNOMED Code(s): 58149260 Code(s): K85.90 - ACUTE PANCREATITIS WITHOUT NECROSIS OR INFECTION, UNSP Status: Acute Priority: High Current Visit: Yes Onset Date: ~03/17/21 Qualifiers: Chronicity: acute Pancreatitis type: unspecified pancreatitis type Acute pancreatitis complication: unspecified Qualified Code(s): K85.90 - Acute pancreatitis without necrosis or infection, unspecified Annotation/Comment:: Elevated amylase/lipase and LFTs. Improving levels LFTs. Amylase and Lipase still quite elevated. WBC improved from 16.4 [address] study shows enlarged/distended/thickened gallbladder with stones but no acute changes in liver/pancreas. Tolerating PO intake. No fevers. (2) Hepatitis SNOMED Code(s): 690437852 Code(s): K75.9 - INFLAMMATORY LIVER DISEASE, UNSPECIFIED Status: Acute Priority: High Current Visit: Yes Annotation/Comment:: as above. Hepatitis panel has been ordered. (3) Elevated troponin SNOMED Code(s): 176714169, 854067966, 311340318 Code(s): R77.8 - OTHER SPECIFIED ABNORMALITIES OF PLASMA PROTEINS Status: Acute Priority: High Current Visit: Yes Annotation/Comment:: Minimal e levation of troponin. Patient denies chest pain/anginal symptoms. Suspect it is elevated secondary to CHF. Repeat Trop today is 65. No obvious ischemic changes on EKG. (4) CHF (congestive heart failure) SNOMED Code(s): 24175871 Code(s): I50.9 - HEART FAILURE, UNSPECIFIED Status: Chronic Priority: Low Current Visit: Yes Qualifiers: Heart failure type: unspecified Heart failure chronicity: chronic Qualified Code(s): I50.9 - Heart failure, unspecified Annotation/Comment:: No previous diagnosis of CHF per patient. She is supposed t o be taking Lasix however and rarely takes it as prescribed. Has significantly elevated ProBNP and chronic lower extremity edema. No evidence of acute increased fluid overload however. No cardiac echo found on her [facility] chart. Patient will need to be scheduled for cardiac echo. Regular lasix to be ordered during inpatient stay with close attention to potential worsening of BUN/Cr. (5) Rheumatoid arthritis SNOMED Code(s): 69810644 Code(s): M06.9 - RHEUMATOID ARTHRITIS, UNSPECIFIED Status: Chronic Priority: Low Current Visit: Yes Qualifiers: Rheumatoid arthritis location: multiple sites Rheumatoid factor presence: unspecified presence Qualified Code(s): M06.9 - Rheumatoid arthritis, unspecified Annotation/Comment:: Continue home medications. Mild worsening of symptoms this past week. Just was restarted on steroids. (6) Chronic kidney disease SNOMED Code(s): 232524711 Code(s): N18.9 - CHRONIC KIDNEY DISEASE, UNSPECIFIED Status: Chronic Priority: Medium Current Visit: Yes Qualifiers: Chronic kidney disease stage: stage 3 (moderate) Annotation/Comment:: Creatinine improved from 1.61 to 1.35 on IV fluids. Recheck in AM. (7) Diabetes mellitus type 2, noninsulin dependent SNOMED Code(s): 43911376 Code(s): E11.9 - TYPE 2 DIABETES MELLITUS WITHOUT COMPLICATIONS Status: Chronic Priority: Low Current Visit: Yes Annotation/Comment:: Accuchecks/monitor trends. (8) Anemia of chronic disease SNOMED Code(s): 413116753 Code(s): D63.8 - ANEMIA IN OTHER CHRONIC DISEASES CLASSIFIED ELSEWHERE Status: Chronic Priority: Low Current Visit: Yes Annotation/Comment:: Stable per history. (9) Pernicious anemia SNOMED Code(s): 67951648 Code(s): D51.0 - VITAMIN B12 DEFIC ANEMIA DUE TO INTRINSIC FACTOR DEFICIENCY Status: Chronic Priority: Low Current Visit: Yes Annotation/Comment:: S table per history. Hgb 11.26 December 2020. 10.6 in ED. Down to 8.5 today s/p IV fluids. Recheck in AM. (10) Weakness SNOMED Code(s): 41667263 Code(s): R53.1 - WEAKNESS Status: Chronic Priority: Medium Current Visit: Yes Annotation/Comment:: Chronic weakness that signficantly worsened this past week. PT and OT to assess Thursday. Suspect acute worsening is related to pancreatitis. (11) Urinary bladder incontinence SNOMED Code(s): 497847286 Code(s): R32 - UNSPECIFIED URINARY INCONTINENCE Status: Chronic Priority: Low Current Visit: Yes Qualifiers: Urinary Incontinence type: mixed stress and urge incontinence Qualified Code(s): N39.46 - Mixed incontinence Annotation/Comment:: Patient wears briefs and they do get wet. Has some redness and irritation in jonas area. Will have nursing apply Nystatin/Triamcinolone topically and assess for response. (12) Cholelithiasis SNOMED Code(s): 321072119 Code(s): K80.20 - CALCULUS OF GALLBLADDER W/O CHOLECYSTITIS W/O OBSTRUCTION Status: Acute Priority: High Current Visit: Yes Qualifiers: Cholelithiasis location: gallbladder Cholecystitis presence: without cholecystitis Biliary obstruction: without biliary obstruction Qualified Code(s): K80.20 - Calculus of gallbladder without cholecystitis without obstruction Annotation/Comment:: Noted on CT today. - Problem List Review Problem List Initiated/Reviewed/Updated: Yes - My Orders Last 24 Hours: My Active Orders 03/23/21 22:05 Chest 2V [CR] Stat 03/23/21 23:30 HEPATITIS PANEL (4) [REF] Routine 03/24/21 00:56 Patient Status [ADT] Routine Blood Glucose Check, Bedside [RC] BIDMEALS Height and Weight [RC] DAILY May Shower [RC] ASDIRECTED Oxygen Therapy [RC] PRN Up With Assistance [RC] ASDIRECTED VTE/DVT Education [RC] PER UNIT ROUTINE Vital Signs [RC] Q4HR Consult to Case Management/Emt Driver [CONS] Routine OT Evaluation and Treatment [CONS] Routine PT Evaluation and Treatment [CONS] Routine Ondansetron [Zofran] 4 mg IVPUSH Q6H PRN Resuscitation Status Routine 03/24/21 00:57 Intake and Output [RC] 06,18 03/24/21 00:58 Cardiac Monitoring [RC] Q2HR Pulse Oximetry [RC] PRN 03/24/21 01:00 Dextrose 5%-0.45% NaCl [Dextrose 5%-1/2 NS] 1,000 ml IV ASDIRECTED 03/24/21 01:15 Nystatin [Nystatin Crm] 1 gm TOP BID 03/24/21 04:33 Peripheral IV Care [RC] . DIRECTED Sodium Chloride 0.9% [Saline Flush] 10 ml FLUSH ASDIRECTED PRN Peripheral IV Insertion Adult [OM.PC] Routine 03/24/21 05:11 CULTURE URINE [RM] Routine 03/24/21 Breakfast Clear Liquid Diet [DIET] 03/24/21 08:00 Enoxaparin [Lovenox] 30 mg SUBCUT DAILY Hydroxychloroquine [Plaquenil] 200 mg PO DAILY hydrALAZINE [Apresoline] 25 mg PO DAILY methylPREDNISolone [Medrol] 4 mg PO DAILY 03/24/21 11:00 Abdomen Pelvis w Cont [CT] Routine Chest w Cont [CT] Routine 03/24/21 17:26 Magnesium Sulfate/D5W [Magnesium Sulfate in D5W 1 GM/100 ML] 1 gm Premix Bag 1 bag IV ONETIME 03/24/21 18:00 TROPONIN I HIGH SENSITIVITY [CHEM] Timed 03/25/21 05:11 AMYLASE [CHEM] AM COMPREHENSIVE METABOLIC PN,CMP [CHEM] AM LIPASE [CHEM] AM MAGNESIUM [CHEM] AM 03/25/21 05:15 CBC WITH AUTO DIFF [HEME] AM 03/25/21 08:00 Furosemide [Lasix] 40 mg IVPUSH DAILY - Assessment Assessment:: as above - Plan Plan:: [facility] contacted today and patient reviewed with surgeon, Dr. Conrad. Patient placed on waiting list for admission to [facility] and current plan is for cholecystectomy and GI eval with possible ERCP. Patient does not appear to be acute infected/in need of antibiotics at this time. Continue current plan while waiting for a bed to open at [facility]. Patient taking PO well, IV fluids discontinued. Anticipate additional 1-2 day stay depending upon when bed becomes available/patient's clinical course.
[2021-03-24] MEDS: Enoxaparin 30 MG/0.3 ML Syringe SUBCUT SCH (20:15)
[2021-03-24] MEDS ORDERED: Magnesium Sulfate/D5W 1 GM/100 ML BAG ONE (21:41)
[2021-03-25] MEDS: Enoxaparin 30 MG/0.3 ML Syringe SUBCUT SCH (08:13)
[2021-03-25] MEDS: Nystatin Crm 30 GM Tube TOP SCH ×2 (08:36→20:43)
[2021-03-25] MEDS: hydrALAZINE 50 MG Tab PO SCH (08:36)
[2021-03-25] MEDS: Hydroxychloroquine 200 MG Tab PO SCH (08:37)
[2021-03-25 08:38] LABS: ANION GAP 12.7 meq/L (7-15)
[2021-03-25] MEDS: Furosemide 40 MG/4 ML VIAL IVPUSH SCH (08:43)
[2021-03-25] MEDS ORDERED: cefTRIAXone 2 GM in Sodium Chloride 0.9% 100 ML IV ONE (11:02)
--- NOTE | 2021-03-25 13:30 | PCM.PN ---
- General Info Date of Service: 03/25/21 Subjective Update: Pt. admitted 03/23/2021 with weakness/problems with ambulation. Pt. found to have evidence of acute cholecystitis on CT scan. Pt. is on list to be transferred to [facility] for cholecystectomy/ERCP when bed space in available. Pt. was initially given some fluids and seems to be feeling better but is confused. She denies any current abdominal discomfort. WBCs are within normal limits. Lactic acid is within normal limits. To note, pt. was noted to have positive nitrate on her UA on admission. She has not been started on any antibiotic at this point. Functional Status: Reports: Pain Controlled - Review of Systems General: Reports: Fever (tmax 37.6 in past 24 hours) HEENT: Reports: No Symptoms Pulmonary: Reports: No Symptoms Cardiovascular: Reports: No Symptoms Gastrointestinal: Reports: No Symptoms Genitourinary: Reports: No Symptoms Musculoskeletal: Reports: No Symptoms Skin: Reports: No Symptoms Neurological: Reports: No Symptoms Psychiatric: Reports: No Symptoms - Patient Data Vitals - Most Recent: Last Vital Signs Temp 36.3 C 03/25/21 08:00 Pulse 73 03/25/21 08:00 Resp 16 03/25/21 08:00 BP 145/76 H 03/25/21 08:36 Pulse Ox 96 03/25/21 08:00 Weight - Most Recent: 64.592 kg I&O - Last 24 Hours: Intake & Output 03/24/21 03/25/21 03/25/21 22:59 06:59 14:59 Intake Total 100 Output Total 300 Balance -200 Lab Results Last 24 Hours: Laboratory Results - last 24 hr 03/24/21 03/24/21 03/25/21 Range/Units 14:52 18:15 07:10 WBC (4.0-10.2) K/uL RBC (3.77-5.09) M/uL Hgb (11.7-15.5) g/dL Hct (34.0-46.0) % MCV (84.0-98.0) fL MCH (28.2-33.3) pg MCHC (31.7-36.0) g/dL RDW (11.2-14.1) % Plt Count (150-350) K/uL Neut % (Auto) (45.0-80.0) % Lymph % (Auto) (10.0-50.0) % [place] % (Auto) (2.0-14.0) % Eos % (Auto) (0.0-5.0) % Baso % (Auto) (0.0-2.0) % Neut # (Auto) (1.40-7.00) K/uL Lymph # (Auto) (0.50-3.50) K/uL [place] # (Auto) (0.00-1.00) K/uL Eos # (Auto) (0.00-0.50) K/uL Baso # (Auto) (0.00-0.20) K/uL Sodium 141 (136-145) mmol/L Potassium 4.7 (3.5-5.1) mmol/L Chloride 108 H (98-107) mmol/L Carbon Dioxide 25.0 (21.0-32.0) mmol/L Anion Gap 12.7 (7-15) meq/L BUN 37 H (7-18) mg/dL Creatinine 1.42 H (0.51-1.17) mg/dL Est Cr Clr Drug Dosing 26.62 mL/min Estimated GFR (MDRD) 35 mL/min Glucose 71 (70-99) mg/dL POC Glucose 138 H (70-99) mg/dL Calcium 8.4 L (8.5-10.1) mg/dL Magnesium 1.9 (1.8-2.4) mg/dL Total Bilirubin 0.7 (0.2-1.0) mg/dL AST 46 H (15-37) U/L ALT 77 (12-78) U/L Alkaline Phosphatase 129 H (46-116) IU/L Troponin I High Sens 55 H* (<=51) ng/L Total Protein 5.3 L (6.4-8.2) g/dL Albumin 2.2 L (3.4-5.0) g/dL Amylase 681 H (25-115) U/L Lipase 2746 H (73-393) U/L 03/25/21 Range/Units 07:10 WBC 9.9 (4.0-10.2) K/uL RBC 2.64 L (3.77-5.09) M/uL Hgb 8.7 L (11.7-15.5) g/dL Hct 27.5 L (34.0-46.0) % MCV 104.2 H (84.0-98.0) fL MCH 33.0 (28.2-33.3) pg MCHC 31.6 L (31.7-36.0) g/dL RDW 13.1 (11.2-14.1) % Plt Count 163 (150-350) K/uL Neut % (Auto) 75.4 (45.0-80.0) % Lymph % (Auto) 16.8 (10.0-50.0) % [place] % (Auto) 6.0 (2.0-14.0) % Eos % (Auto) 1.7 (0.0-5.0) % Baso % (Auto) 0.1 (0.0-2.0) % Neut # (Auto) 7.48 H (1.40-7.00) K/uL Lymph # (Auto) 1.67 (0.50-3.50) K/uL [place] # (Auto) 0.60 (0.00-1.00) K/uL Eos # (Auto) 0.17 (0.00-0.50) K/uL Baso # (Auto) 0.01 (0.00-0.20) K/uL Sodium (136-145) mmol/L Potassium (3.5-5.1) mmol/L Chloride (98-107) mmol/L Carbon Dioxide (21.0-32.0) mmol/L Anion Gap (7-15) meq/L BUN (7-18) mg/dL Creatinine (0.51-1.17) mg/dL Est Cr Clr Drug Dosing mL/min Estimated GFR (MDRD) mL/min Glucose (70-99) mg/dL POC Glucose (70-99) mg/dL Calcium (8.5-10.1) mg/dL Magnesium (1.8-2.4) mg/dL Total Bilirubin (0.2-1.0) mg/dL AST (15-37) U/L ALT (12-78) U/L Alkaline Phosphatase (46-116) IU/L Troponin I High Sens (<=51) ng/L Total Protein (6.4-8.2) g/dL Albumin (3.4-5.0) g/dL Amylase (25-115) U/L Lipase (73-393) U/L Jeo Results Last 24 Hours: Microbiology 03/23/21 23:25 Urine Culture - Preliminary Urine, Catheterized Gram Negative Rods Med Orders - Current: Current Medications Enoxaparin Sodium (Enoxaparin 30 Mg/0.3 Ml Syringe) 30 mg SUBCUT DAILY [facility] Last Admin: 03/25/21 08:13 Dose: Not Given Documented by: Furosemide (Furosemide 40 Mg/4 Ml Vial) 40 mg IVPUSH DAILY [facility] Last Admin: 03/25/21 08:43 Dose: 40 mg Documented by: Hydralazine HCl (Hydralazine 50 Mg Tab) 25 mg PO DAILY [facility] Last Admin: 03/25/21 08:36 Dose: 25 mg Documented by: Hydroxychloroquine Sulfate (Hydroxychloroquine 200 Mg Tab) 200 mg PO DAILY [facility] Last Admin: 03/25/21 08:37 Dose: 200 mg Documented by: Potassium Chloride/Dextrose/Sod Cl (D5 1/2 Ns W/ 20 Meq/L Kcl) 1,000 mls @ 100 mls/hr IV ASDIRECTED [facility] Methylprednisolone (Methylprednisolone 4 Mg Tab) 4 mg PO DAILY [facility] Last Admin: 03/25/21 08:36 Dose: 4 mg Documented by: Nystatin (Nystatin Crm 30 Gm Tube) 1 gm TOP BID [facility] Last Admin: 03/25/21 08:36 Dose: 1 applic Documented by: Ondansetron HCl (Ondansetron 4 Mg/2 Ml Sdv) 4 mg IVPUSH Q6H PRN PRN Reason: Nausea/Vomiting Sodium Chloride (Sodium Chloride 0.9% 10 Ml Syringe) 10 ml FLUSH ASDIRECTED PRN PRN Reason: Keep Vein Open Last Admin: 03/25/21 11:46 Dose: 10 ml Documented by: Discontinued Medications Dextrose/Sodium Chloride (Dextrose 5%-1/2 Ns) 1,000 mls @ 70 mls/hr IV ASDIRECTED [facility] Last Admin: 03/24/21 05:15 Dose: 100 mls/hr Documented by: Magnesium Sulfate/Dextrose 1 (gm/ Premix) 100 mls @ 100 mls/hr IV ONETIME ONE Stop: 03/24/21 18:25 Last Admin: 03/24/21 21:46 Dose: 100 mls/hr Documented by: Magnesium Sulfate/Dextrose (Magnesium Sulfate In D5w 1 Gm/100 Ml) Confirm Administered Dose 1 gm in 100 mls @ as directed .ROUTE .STK-MED ONE Stop: 03/24/21 21:42 Last Admin: 03/24/21 21:46 Dose: Not Given Documented by: Ceftriaxone Sodium 2 gm/ (Sodium Chloride) 100 mls @ 200 mls/hr IV ONETIME ONE Stop: 03/25/21 11:31 Last Admin: 03/25/21 11:44 Dose: 200 mls/hr Documented by: Iopamidol (Iopamidol 612 Mg/Ml 100 Ml Bottle) 100 ml IVPUSH ONETIME ONE Stop: 03/24/21 11:02 Last Admin: 03/24/21 11:20 Dose: 100 ml Documented by: - Exam General: Alert, Oriented HEENT: Pupils Equal, Pupils Reactive, EOMI Neck: Supple Lungs: Clear to Auscultation, Normal Respiratory Effort Cardiovascular: Regular Rate, Regular Rhythm GI/Abdominal Exam: Normal Bowel Sounds, Soft, Non-Tender, No Organomegaly, No Distention, No Abnormal Bruit, No Mass (Female) Exam: Deferred Extremities: Normal Inspection, Normal Range of Motion, Non-Tender, No Pedal Edema, Normal Capillary Refill Skin: Warm, Dry, Intact Wound/Incisions: Healing Well Neurological: No New Focal Deficit Psy/Mental Status: Alert, Normal Affect - Patient Data Lab Results Last 24 hrs: Laboratory Results - last 24 hr 03/24/21 03/24/21 03/25/21 Range/Units 14:52 18:15 07:10 WBC (4.0-10.2) K/uL RBC (3.77-5.09) M/uL Hgb (11.7-15.5) g/dL Hct (34.0-46.0) % MCV (84.0-98.0) fL MCH (28.2-33.3) pg MCHC (31.7-36.0) g/dL RDW (11.2-14.1) % Plt Count (150-350) K/uL Neut % (Auto) (45.0-80.0) % Lymph % (Auto) (10.0-50.0) % [place] % (Auto) (2.0-14.0) % Eos % (Auto) (0.0-5.0) % Baso % (Auto) (0.0-2.0) % Neut # (Auto) (1.40-7.00) K/uL Lymph # (Auto) (0.50-3.50) K/uL [place] # (Auto) (0.00-1.00) K/uL Eos # (Auto) (0.00-0.50) K/uL Baso # (Auto) (0.00-0.20) K/uL Sodium 141 (136-145) mmol/L Potassium 4.7 (3.5-5.1) mmol/L Chloride 108 H (98-107) mmol/L Carbon Dioxide 25.0 (21.0-32.0) mmol/L Anion Gap 12.7 (7-15) meq/L BUN 37 H (7-18) mg/dL Creatinine 1.42 H (0.51-1.17) mg/dL Est Cr Clr Drug Dosing 26.62 mL/min Estimated GFR (MDRD) 35 mL/min Glucose 71 (70-99) mg/dL POC Glucose 138 H (70-99) mg/dL Calcium 8.4 L (8.5-10.1) mg/dL Magnesium 1.9 (1.8-2.4) mg/dL Total Bilirubin 0.7 (0.2-1.0) mg/dL AST 46 H (15-37) U/L ALT 77 (12-78) U/L Alkaline Phosphatase 129 H (46-116) IU/L Troponin I High Sens 55 H* (<=51) ng/L Total Protein 5.3 L (6.4-8.2) g/dL Albumin 2.2 L (3.4-5.0) g/dL Amylase 681 H (25-115) U/L Lipase 2746 H (73-393) U/L 03/25/21 Range/Units 07:10 WBC 9.9 (4.0-10.2) K/uL RBC 2.64 L (3.77-5.09) M/uL Hgb 8.7 L (11.7-15.5) g/dL Hct 27.5 L (34.0-46.0) % MCV 104.2 H (84.0-98.0) fL MCH 33.0 (28.2-33.3) pg MCHC 31.6 L (31.7-36.0) g/dL RDW 13.1 (11.2-14.1) % Plt Count 163 (150-350) K/uL Neut % (Auto) 75.4 (45.0-80.0) % Lymph % (Auto) 16.8 (10.0-50.0) % [place] % (Auto) 6.0 (2.0-14.0) % Eos % (Auto) 1.7 (0.0-5.0) % Baso % (Auto) 0.1 (0.0-2.0) % Neut # (Auto) 7.48 H (1.40-7.00) K/uL Lymph # (Auto) 1.67 (0.50-3.50) K/uL [place] # (Auto) 0.60 (0.00-1.00) K/uL Eos # (Auto) 0.17 (0.00-0.50) K/uL Baso # (Auto) 0.01 (0.00-0.20) K/uL Sodium (136-145) mmol/L Potassium (3.5-5.1) mmol/L Chloride (98-107) mmol/L Carbon Dioxide (21.0-32.0) mmol/L Anion Gap (7-15) meq/L BUN (7-18) mg/dL Creatinine (0.51-1.17) mg/dL Est Cr Clr Drug Dosing mL/min Estimated GFR (MDRD) mL/min Glucose (70-99) mg/dL POC Glucose (70-99) mg/dL Calcium (8.5-10.1) mg/dL Magnesium (1.8-2.4) mg/dL Total Bilirubin (0.2-1.0) mg/dL AST (15-37) U/L ALT (12-78) U/L Alkaline Phosphatase (46-116) IU/L Troponin I High Sens (<=51) ng/L Total Protein (6.4-8.2) g/dL Albumin (3.4-5.0) g/dL Amylase (25-115) U/L Lipase (73-393) U/L Result Diagrams: 03/25/21 07:10 03/25/21 07:10 Joe Results Last 24 hrs: Microbiology 03/23/21 23:25 Urine Culture - Preliminary Urine, Catheterized Gram Negative Rods Sepsis Event Note - Evaluation Sepsis Screening Result: No Definite Risk - Focused Exam Vital Signs: Vital Signs Temp Pulse Resp BP BP Pulse Ox 03/25/21 08:36 145/76 H 03/25/21 08:00 36.3 C 73 16 145/76 H 96 03/25/21 04:00 37.6 C 74 14 135/61 95 - Problem List Review Problem List Initiated/Reviewed/Updated: Yes - My Orders Last 24 Hours: My Active Orders 03/25/21 13:15 D5 1/2 NS w/ 20 mEq/L KCl 1,000 ml IV ASDIRECTED 03/25/21 Dinner NPO Now [Nothing per Oral Now Diet] [DIET] - Assessment Assessment:: as above - Plan Plan:: [facility] contacted today and patient reviewed with surgeon, Dr. Conrad. Patient placed on waiting list for admission to [facility] and current plan is for cholecystectomy and GI eval with possible ERCP. Patient does not appear to be acute infected/in need of antibiotics at this time. Continue current plan while waiting for a bed to open at [facility]. Patient taking PO well, IV fluids discontinued. Anticipate additional 1-2 day stay depending upon when bed becomes available/patient's clinical course. 03/25/2021 Awaiting authorization to transfer. Pt. was started on IV rocephin for UTI. Pt. will be started on D5 1/2 NS with 20KCL. We are keeping her NPO for now pending possible surgery in the near future.
[2021-03-25] MEDS: D5 1/2 NS w/ 20 mEq/L KCl 1,000 ML IV SCH (14:46)
[2021-03-26] MEDS: D5 1/2 NS w/ 20 mEq/L KCl 1,000 ML IV SCH (00:54)
[2021-03-26] MEDS: Furosemide 40 MG/4 ML VIAL IVPUSH SCH (08:04)
[2021-03-26] MEDS: hydrALAZINE 50 MG Tab PO SCH ×3 (08:04→18:04)
[2021-03-26] MEDS: Hydroxychloroquine 200 MG Tab PO SCH (08:07)
[2021-03-26] MEDS: Nystatin Crm 30 GM Tube TOP SCH ×2 (08:08→19:44)
[2021-03-26] MEDS: Enoxaparin 30 MG/0.3 ML Syringe SUBCUT SCH ×2 (08:09→13:12)
[2021-03-26 09:35] LABS: PTT,PARTIAL THROMBOPLSTIN TIME 24.4 SEC (24.5-32.8)
[2021-03-26 09:46] LABS: ANION GAP 11.5 meq/L (7-15)
--- NOTE | 2021-03-26 10:09 | PCM.PN ---
- General Info Date of Service: 03/26/21 Admission Dx/Problem (Free Text): Pancreatitis, weakness UTI Subjective Update: Patient has been resting well. She is very hungry this morning. She offers no complaints today. She does relate that she feels quite bit better than when she initially arrived. She has been ambulating to the bathroom with some generalized weakness but is about at baseline. Updated the patient on her laboratory evaluation and the improvement of some of her labs. We are still waiting for hospital placement at [facility]. Functional Status: Reports: Pain Controlled, Ambulating, Urinating. Denies: New Symptoms - Review of Systems General: Reports: No Symptoms HEENT: Reports: No Symptoms Pulmonary: Reports: No Symptoms Cardiovascular: Reports: No Symptoms Gastrointestinal: Reports: No Symptoms Genitourinary: Reports: No Symptoms Musculoskeletal: Reports: No Symptoms Skin: Reports: No Symptoms Neurological: Reports: No Symptoms Psychiatric: Reports: No Symptoms - Patient Data Vitals - Most Recent: Last Vital Signs Temp 98.4 F 03/26/21 08:00 Pulse 71 03/26/21 08:00 Resp 14 03/26/21 08:00 BP 152/78 H 03/26/21 08:04 Pulse Ox 95 03/26/21 08:00 Weight - Most Recent: 142 lb 6.4 oz I&O - Last 24 Hours: Intake & Output 03/25/21 03/26/21 03/26/21 22:59 06:59 14:59 Intake Total 360 Balance 360 Lab Results Last 24 Hours: Laboratory Results - last 24 hr 03/26/21 03/26/21 03/26/21 Range/Units 09:06 09:06 09:06 WBC 8.6 (4.0-10.2) K/uL RBC 3.11 L (3.77-5.09) M/uL Hgb 10.2 L D (11.7-15.5) g/dL Hct 32.3 L (34.0-46.0) % MCV 103.9 H (84.0-98.0) fL MCH 32.8 (28.2-33.3) pg MCHC 31.6 L (31.7-36.0) g/dL RDW 13.0 (11.2-14.1) % Plt Count 196 (150-350) K/uL Neut % (Auto) 76.8 (45.0-80.0) % Lymph % (Auto) 15.7 (10.0-50.0) % Motley % (Auto) 5.5 (2.0-14.0) % Eos % (Auto) 1.9 (0.0-5.0) % Baso % (Auto) 0.1 (0.0-2.0) % Neut # (Auto) 6.61 (1.40-7.00) K/uL Lymph # (Auto) 1.35 (0.50-3.50) K/uL Motley # (Auto) 0.47 (0.00-1.00) K/uL Eos # (Auto) 0.16 (0.00-0.50) K/uL Baso # (Auto) 0.01 (0.00-0.20) K/uL PT 10.0 (9.5-12.0) SEC INR 1.0 APTT 24.4 L (24.5-32.8) SEC Sodium 141 (136-145) mmol/L Potassium 4.7 (3.5-5.1) mmol/L Chloride 107 (98-107) mmol/L Carbon Dioxide 22.5 (21.0-32.0) mmol/L Anion Gap 11.5 (7-15) meq/L BUN 35 H (7-18) mg/dL Creatinine 1.32 H (0.51-1.17) mg/dL Est Cr Clr Drug Dosing 28.64 mL/min Estimated GFR (MDRD) 38 mL/min Glucose 95 (70-99) mg/dL Lactic Acid (0.4-2.0) mmol/L Calcium 8.9 (8.5-10.1) mg/dL Total Bilirubin 0.5 (0.2-1.0) mg/dL AST 28 (15-37) U/L ALT 67 (12-78) U/L Alkaline Phosphatase 146 H (46-116) IU/L Total Protein 6.6 (6.4-8.2) g/dL Albumin 2.7 L (3.4-5.0) g/dL Amylase 386 H (25-115) U/L Lipase 1739 H (73-393) U/L 03/26/21 Range/Units 09:06 WBC (4.0-10.2) K/uL RBC (3.77-5.09) M/uL Hgb (11.7-15.5) g/dL Hct (34.0-46.0) % MCV (84.0-98.0) fL MCH (28.2-33.3) pg MCHC (31.7-36.0) g/dL RDW (11.2-14.1) % Plt Count (150-350) K/uL Neut % (Auto) (45.0-80.0) % Lymph % (Auto) (10.0-50.0) % Motley % (Auto) (2.0-14.0) % Eos % (Auto) (0.0-5.0) % Baso % (Auto) (0.0-2.0) % Neut # (Auto) (1.40-7.00) K/uL Lymph # (Auto) (0.50-3.50) K/uL Motley # (Auto) (0.00-1.00) K/uL Eos # (Auto) (0.00-0.50) K/uL Baso # (Auto) (0.00-0.20) K/uL PT (9.5-12.0) SEC INR APTT (24.5-32.8) SEC Sodium (136-145) mmol/L Potassium (3.5-5.1) mmol/L Chloride (98-107) mmol/L Carbon Dioxide (21.0-32.0) mmol/L Anion Gap (7-15) meq/L BUN (7-18) mg/dL Creatinine (0.51-1.17) mg/dL Est Cr Clr Drug Dosing mL/min Estimated GFR (MDRD) mL/min Glucose (70-99) mg/dL Lactic Acid 1.1 (0.4-2.0) mmol/L Calcium (8.5-10.1) mg/dL Total Bilirubin (0.2-1.0) mg/dL AST (15-37) U/L ALT (12-78) U/L Alkaline Phosphatase (46-116) IU/L Total Protein (6.4-8.2) g/dL Albumin (3.4-5.0) g/dL Amylase (25-115) U/L Lipase (73-393) U/L Joe Results Last 24 Hours: Microbiology 03/23/21 23:25 Urine Culture - Final Urine, Catheterized Escherichia Coli Med Orders - Current: Current Medications Ceftriaxone Sodium (Ceftriaxone 2 Gm Vial) 2 gm IVPUSH Q24H [facility] Enoxaparin Sodium (Enoxaparin 30 Mg/0.3 Ml Syringe) 30 mg SUBCUT DAILY [facility] Last Admin: 03/26/21 08:09 Dose: Not Given Documented by: Hydralazine HCl (Hydralazine 50 Mg Tab) 25 mg PO DAILY [facility] Last Admin: 03/26/21 08:04 Dose: 25 mg Documented by: Hydroxychloroquine Sulfate (Hydroxychloroquine 200 Mg Tab) 200 mg PO DAILY [facility] Last Admin: 03/26/21 08:07 Dose: 200 mg Documented by: Potassium Chloride/Dextrose/Sod Cl (D5 1/2 Ns W/ 20 Meq/L Kcl) 1,000 mls @ 100 mls/hr IV ASDIRECTED [facility] Last Admin: 03/26/21 00:54 Dose: 100 mls/hr Documented by: Nystatin (Nystatin Crm 30 Gm Tube) 0 gm TOP Q12HR [facility] Last Admin: 03/26/21 08:08 Dose: 1 applic Documented by: Ondansetron HCl (Ondansetron 4 Mg/2 Ml Sdv) 4 mg IVPUSH Q6H PRN PRN Reason: Nausea/Vomiting Sodium Chloride (Sodium Chloride 0.9% 10 Ml Syringe) 10 ml FLUSH ASDIRECTED PRN PRN Reason: Keep Vein Open Last Admin: 03/25/21 11:46 Dose: 10 ml Documented by: Discontinued Medications Furosemide (Furosemide 40 Mg/4 Ml Vial) 40 mg IVPUSH DAILY [facility] Last Admin: 03/26/21 08:04 Dose: 40 mg Documented by: Dextrose/Sodium Chloride (Dextrose 5%-1/2 Ns) 1,000 mls @ 70 mls/hr IV ASDIRECTED [facility] Last Admin: 03/24/21 05:15 Dose: 100 mls/hr Documented by: Magnesium Sulfate/Dextrose 1 (gm/ Premix) 100 mls @ 100 mls/hr IV ONETIME ONE Stop: 03/24/21 18:25 Last Admin: 03/24/21 21:46 Dose: 100 mls/hr Documented by: Magnesium Sulfate/Dextrose (Magnesium Sulfate In D5w 1 Gm/100 Ml) Confirm Administered Dose 1 gm in 100 mls @ as directed .ROUTE .STK-MED ONE Stop: 03/24/21 21:42 Last Admin: 03/24/21 21:46 Dose: Not Given Documented by: Ceftriaxone Sodium 2 gm/ (Sodium Chloride) 100 mls @ 200 mls/hr IV ONETIME ONE Stop: 03/25/21 11:31 Last Admin: 03/25/21 11:44 Dose: 200 mls/hr Documented by: Iopamidol (Iopamidol 612 Mg/Ml 100 Ml Bottle) 100 ml IVPUSH ONETIME ONE Stop: 03/24/21 11:02 Last Admin: 03/24/21 11:20 Dose: 100 ml Documented by: Methylprednisolone (Methylprednisolone 4 Mg Tab) 4 mg PO DAILY [facility] Last Admin: 03/26/21 08:07 Dose: 4 mg Documented by: Nystatin (Nystatin Crm 30 Gm Tube) 1 gm TOP BID [facility] Last Admin: 03/25/21 08:36 Dose: 1 applic Documented by: - Exam General: Alert, Oriented HEENT: Pupils Equal, Pupils Reactive, EOMI, Mucous Membr. Moist/[place] Neck: Supple Lungs: Normal Respiratory Effort, Crackles (bilat lower bases. ). No: Rhonchi Cardiovascular: Regular Rate, Regular Rhythm GI/Abdominal Exam: Normal Bowel Sounds, Soft, Non-Tender, No Distention (Female) Exam: Deferred Back Exam: Normal Inspection Extremities: Pedal Edema (2+ = bilaterally. ) Peripheral Pulses: 1+: Posterior Tibial (L), Posterior Tibial (R), Dorsalis Pedis (L), Dorsalis Pedis (R), 2+: Radial (L), Radial (R) Skin: Warm, Dry, Intact Neurological: No New Focal Deficit Psy/Mental Status: Alert, Normal Affect, Normal Mood - Patient Data Lab Results Last 24 hrs: Laboratory Results - last 24 hr 03/26/21 03/26/21 03/26/21 Range/Units 09:06 09:06 09:06 WBC 8.6 (4.0-10.2) K/uL RBC 3.11 L (3.77-5.09) M/uL Hgb 10.2 L D (11.7-15.5) g/dL Hct 32.3 L (34.0-46.0) % MCV 103.9 H (84.0-98.0) fL MCH 32.8 (28.2-33.3) pg MCHC 31.6 L (31.7-36.0) g/dL RDW 13.0 (11.2-14.1) % Plt Count 196 (150-350) K/uL Neut % (Auto) 76.8 (45.0-80.0) % Lymph % (Auto) 15.7 (10.0-50.0) % Motley % (Auto) 5.5 (2.0-14.0) % Eos % (Auto) 1.9 (0.0-5.0) % Baso % (Auto) 0.1 (0.0-2.0) % Neut # (Auto) 6.61 (1.40-7.00) K/uL Lymph # (Auto) 1.35 (0.50-3.50) K/uL [place]ley # (Auto) 0.47 (0.00-1.00) K/uL Eos # (Auto) 0.16 (0.00-0.50) K/uL Baso # (Auto) 0.01 (0.00-0.20) K/uL PT 10.0 (9.5-12.0) SEC INR 1.0 APTT 24.4 L (24.5-32.8) SEC Sodium 141 (136-145) mmol/L Potassium 4.7 (3.5-5.1) mmol/L Chloride 107 (98-107) mmol/L Carbon Dioxide 22.5 (21.0-32.0) mmol/L Anion Gap 11.5 (7-15) meq/L BUN 35 H (7-18) mg/dL Creatinine 1.32 H (0.51-1.17) mg/dL Est Cr Clr Drug Dosing 28.64 mL/min Estimated GFR (MDRD) 38 mL/min Glucose 95 (70-99) mg/dL Lactic Acid (0.4-2.0) mmol/L Calcium 8.9 (8.5-10.1) mg/dL Total Bilirubin 0.5 (0.2-1.0) mg/dL AST 28 (15-37) U/L ALT 67 (12-78) U/L Alkaline Phosphatase 146 H (46-116) IU/L Total Protein 6.6 (6.4-8.2) g/dL Albumin 2.7 L (3.4-5.0) g/dL Amylase 386 H (25-115) U/L Lipase 1739 H (73-393) U/L 03/26/21 Range/Units 09:06 WBC (4.0-10.2) K/uL RBC (3.77-5.09) M/uL Hgb (11.7-15.5) g/dL Hct (34.0-46.0) % MCV (84.0-98.0) fL MCH (28.2-33.3) pg MCHC (31.7-36.0) g/dL RDW (11.2-14.1) % Plt Count (150-350) K/uL Neut % (Auto) (45.0-80.0) % Lymph % (Auto) (10.0-50.0) % Motley % (Auto) (2.0-14.0) % Eos % (Auto) (0.0-5.0) % Baso % (Auto) (0.0-2.0) % Neut # (Auto) (1.40-7.00) K/uL Lymph # (Auto) (0.50-3.50) K/uL Motley # (Auto) (0.00-1.00) K/uL Eos # (Auto) (0.00-0.50) K/uL Baso # (Auto) (0.00-0.20) K/uL PT (9.5-12.0) SEC INR APTT (24.5-32.8) SEC Sodium (136-145) mmol/L Potassium (3.5-5.1) mmol/L Chloride (98-107) mmol/L Carbon Dioxide (21.0-32.0) mmol/L Anion Gap (7-15) meq/L BUN (7-18) mg/dL Creatinine (0.51-1.17) mg/dL Est Cr Clr Drug Dosing mL/min Estimated GFR (MDRD) mL/min Glucose (70-99) mg/dL Lactic Acid 1.1 (0.4-2.0) mmol/L Calcium (8.5-10.1) mg/dL Total Bilirubin (0.2-1.0) mg/dL AST (15-37) U/L ALT (12-78) U/L Alkaline Phosphatase (46-116) IU/L Total Protein (6.4-8.2) g/dL Albumin (3.4-5.0) g/dL Amylase (25-115) U/L Lipase (73-393) U/L Result Diagrams: 03/26/21 09:06 03/26/21 09:06 Joe Results Last 24 hrs: Microbiology 03/23/21 23:25 Urine Culture - Final Urine, Catheterized Escherichia Coli Sepsis Event Note - Evaluation Sepsis Screening Result: No Definite Risk - Focused Exam Vital Signs: Vital Signs Temp Pulse Resp BP BP Pulse Ox 03/26/21 08:04 152/78 H 03/26/21 08:00 98.4 F 71 14 152/78 H 95 - Problem List Review Problem List Initiated/Reviewed/Updated: Yes - My Orders Last 24 Hours: My Active Orders 03/26/21 09:27 Echo Comp wo Cont [US] Urgent 03/26/21 Lunch Clear Liquid Diet [DIET] - Assessment Assessment:: Assessment/Plan Last 24 hours. Update. Frequent urination with dribbling unable to get accurate I/Os No complaints today otherwise. Antoni hopefully bed tomorrow called and updated us today. #1. Acute cholecystitis possible choledocholithiasis, possible gallstone pancreatitis T bili 3.3 03/23) 0.5 03/26. AST ALT improving almost to baseline. Lipase 1500 (03/23) 2746 (03/25) 03/26 1739 On Rocephin will add Flagyl as well. Waiting for bed Dr. Houston Corrales for possible surgery. Clear liquids this morning NPO once bed available. #2. Acute UTI E Coli UC with >100k CFU E Coli sensitive to Ceftriaxone Continue 2 grams IVPB q24hrs. #3. Sepsis from either #1 and/or #2. Resolving WBC 16.4 (03/23) WBC 8.6 (03/26) lactic acid 1.1, P 71, BP 152/78 Ceftriaxone 2 grams Q24 No Blood cultures obtained prior to anti-biotic therapy. #4. Acute CHF No history or Echo available. Pro-BNP 15,362 (03/23/21). 2+ pitting edema bilat. Holding home lasix for now. Will place gao as incontinent and unable to assess I/Os. #5. Weakness from all above. Continue to hydrate and treat above. Planning on surgery. PT/OT consult. #6. Pericardial effusion No documented history. Echo ordered today. #7. Bilateral pleural effusion Echo today. #8. Lung nodule right middle lobe 3mm nodule, favored benign per radiology. Hx of Breast Ca Follow up outpatient CT chest for following 6 months. #9. Essential hypertension with goal blood pressure less than 140/90. BP today 152/78 On Hydralazine 25mg po daily. home is 50mg tid. Increase to 25mg TID monitor closely BP. #10. Acute urinary retention. Could be cause of UTI Bladder scan >850mls. Gao catheter placed. Chronic Medical Diagnosis. CKD Stage 4, GFR 15-29. Baseline Creat 1.4 GFR 35 (01/04/21). Creat 1.32 GFR 38 (03/26/21) Sodium Bicarb 1950mg po bid. Continue fluid administration. D5 1/2 NS 100mls/hr. Vitamin B 12 Deficiency Pernicious anemia Continue home B-12 monthly Anemia of Chronic Disease Hgb 11.4 (01/04/21) Hgb 10.2 (03/26/21) Rheumatoid Arthritis Continue home Plaquenil 200mg M-F Discontinue Medrol no termite helper therapy indicated per [facility] 01/04/21. 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 A1c 5.9 09/04/19, BS in hosp <100 Continue to monitor with labs. - Plan Plan:: Still waiting on bed placement at [facility]. Will allow clear liquids this morning. DC potassium in fluids. D5/1/2NS at 100mls/hr DC Medrol not on chronically. Increase Hydralazine 25mg tid, home regimen 50mg tid. Echo today. Hopefully will get a bed at [facility] today to get her to definitive care for her above concerns. Already spoke with Dr. Houston espinosa from surgery about transfer. VTE: Enox 30mg subcut Sepsis: Resolving, E Coli in urine also acute julia. Code Status: DNR/DNI
[2021-03-26] MEDS: cefTRIAXone 2 GM Vial IVPUSH SCH (13:12)
[2021-03-26] MEDS: Dextrose 5%-0.45% NaCl 1,000 ML IV SCH (13:20)
[2021-03-26] MEDS: metroNIDAZOLE/Normal Saline 500 MG in Premix Bag 1 BAG IV SCH (19:43)
[2021-03-27] MEDS: metroNIDAZOLE/Normal Saline 500 MG in Premix Bag 1 BAG IV SCH ×2 (03:43→10:23)
[2021-03-27] MEDS: Dextrose 5%-0.45% NaCl 1,000 ML IV SCH ×2 (04:47→12:44)
[2021-03-27] MEDS: Hydroxychloroquine 200 MG Tab PO SCH (07:25)
[2021-03-27] MEDS: hydrALAZINE 50 MG Tab PO SCH ×2 (07:25→14:24)
[2021-03-27] MEDS: Nystatin Crm 30 GM Tube TOP SCH (07:26)
[2021-03-27 09:49] LABS: ANION GAP 13.6 meq/L (7-15)
[2021-03-27] MEDS: cefTRIAXone 2 GM Vial IVPUSH SCH (10:23)
[2021-03-27] MEDS: Enoxaparin 30 MG/0.3 ML Syringe SUBCUT SCH (14:24)
--- NOTE | 2021-03-27 14:30 | PCM.DCSUM1 ---
Discharge Summary - Hospital Course Brief History: Admitted for further treatment and evaluation of weakness, pancreatitis Diagnosis: Stroke: No - Discharge Data Discharge Date: 03/27/21 Discharge Disposition: DC/Tfer to Acute Hospital 02 Condition: Good - Referral to Home Health Primary Care Physician: Bang Vela MD - Discharge Diagnosis/Problem(s) (1) Pancreatitis SNOMED Code(s): 25175028 ICD Code: K85.90 - ACUTE PANCREATITIS WITHOUT NECROSIS OR INFECTION, UNSP Status: Acute Priority: High Current Visit: Yes Onset Date: ~03/17/21 Problem Details: Elevated amylase/lipase and LFTs. Total Bili normalized. Amylase and Lipase significantly improved. WBC normalized. Afebrile. CT study shows enlarged/distended/thickened gallbladder with stones but no acute changes in liver/pancreas. Tolerating PO intake. No fevers. Qualifiers: Chronicity: acute Pancreatitis type: unspecified pancreatitis type Acute pancreatitis complication: unspecified Qualified Code(s): K85.90 - Acute pancreatitis without necrosis or infection, unspecified (2) E-coli UTI SNOMED Code(s): 291202401 ICD Code: N39.0 - URINARY TRACT INFECTION, SITE NOT SPECIFIED; B96.20 - UNSP ESCHERICHIA COLI THE CAUSE OF DISEASES CLASSD ELSWHR Status: Acute Priority: Medium Current Visit: Yes Problem Details: UC + for Ecoli. Patient receiving Rocephin. Only 0-5 WBC and RBC noted UA sample. (3) Weakness SNOMED Code(s): 98271622 ICD Code: R53.1 - WEAKNESS Status: Chronic Priority: Medium Current Visit: Yes Problem Details: Chronic weakness that signficantly worsened this past week. PT and OT to assess Thursday. Suspect acute worsening is related to pancreatitis. (4) Cholelithiasis SNOMED Code(s): 626491410 ICD Code: K80.20 - CALCULUS OF GALLBLADDER W/O CHOLECYSTITIS W/O OBSTRUCTION Status: Acute Priority: High Current Visit: Yes Problem Details: Noted on CT today. Qualifiers: Cholelithiasis location: gallbladder Cholecystitis presence: without cholecystitis Biliary obstruction: without biliary obstruction Qualified Code(s): K80.20 - Calculus of gallbladder without cholecystitis without obstruction (5) Hepatitis SNOMED Code(s): 765386892 ICD Code: K75.9 - INFLAMMATORY LIVER DISEASE, UNSPECIFIED Status: Acute Priority: High Current Visit: Yes Problem Details: as above. Hepatitis panel has been ordered. LFTs have since normalized. (6) Elevated troponin SNOMED Code(s): 243355000, 778798792, 826130486 ICD Code: R77.8 - OTHER SPECIFIED ABNORMALITIES OF PLASMA PROTEINS Status: Acute Priority: High Current Visit: Yes Problem Details: Minimal elevation of troponin. Patient denies chest pain/anginal symptoms. Suspect it is elevated secondary to CHF. Repeat Trop today is 65. No obvious ischemic changes on EKG. (7) CHF (congestive heart failure) SNOMED Code(s): 56974700 ICD Code: I50.9 - HEART FAILURE, UNSPECIFIED Status: Chronic Priority: Low Current Visit: Yes Problem Details: No previous diagnosis of CHF per patient. She is supposed to be taking Lasix however and rarely takes it as prescribed. Has significantly elevated ProBNP and chronic lower extremity edema. No evidence of acute increased fluid overload however. Lasix ordered. Patient underwent Cardiac Echo study this week and offical results pending. Qualifiers: Heart failure type: unspecified Heart failure chronicity: chronic Qualified Code(s): I50.9 - Heart failure, unspecified (8) Rheumatoid arthritis SNOMED Code(s): 15554167 ICD Code: M06.9 - RHEUMATOID ARTHRITIS, UNSPECIFIED Status: Chronic Priority: Low Current Visit: Yes Problem Details: Continue home medications. Mild worsening of symptoms this past week. Just was restarted on steroids. Qualifiers: Rheumatoid arthritis location: multiple sites Rheumatoid factor presence: unspecified presence Qualified Code(s): M06.9 - Rheumatoid arthritis, unspecified (9) Chronic kidney disease SNOMED Code(s): 964585028 ICD Code: N18.9 - CHRONIC KIDNEY DISEASE, UNSPECIFIED Status: Chronic Priority: Medium Current Visit: Yes Problem Details: Creatinine improved after IV fluids. Stable. Qualifiers: Chronic kidney disease stage: stage 3 (moderate) (10) Diabetes mellitus type 2, noninsulin dependent SNOMED Code(s): 56101098 ICD Code: E11.9 - TYPE 2 DIABETES MELLITUS WITHOUT COMPLICATIONS Status: Chronic Priority: Low Current Visit: Yes Problem Details: Accuchecks/monitor trends. (11) Anemia of chronic disease SNOMED Code(s): 612856048 ICD Code: D63.8 - ANEMIA IN OTHER CHRONIC DISEASES CLASSIFIED ELSEWHERE Status: Chronic Priority: Low Current Visit: Yes Problem Details: Stable per history. (12) Pernicious anemia SNOMED Code(s): 31216908 ICD Code: D51.0 - VITAMIN B12 DEFIC ANEMIA DUE TO INTRINSIC FACTOR DEFICIENCY Status: Chronic Priority: Low Current Visit: Yes Problem Details: Stable per history. Hgb 11.26 December 2020. 10.6 in ED. Down to 8.5 s/p IV fluids. (13) Urinary bladder incontinence SNOMED Code(s): 181569496 ICD Code: R32 - UNSPECIFIED URINARY INCONTINENCE Status: Chronic Priority: Low Current Visit: Yes Problem Details: Patient wears briefs and they do get wet. Has some redness and irritation in jonas area. Will have nursing apply Nystatin/Triamcinolone topically and assess for response. Qualifiers: Urinary Incontinence type: mixed stress and urge incontinence Qualified Code(s): N39.46 - Mixed incontinence - Patient Summary/Data Consults: Consultations 03/24/21 00:56 Consult to Case Management/Materials Technician [CONS] Routine OT Evaluation and Treatment [CONS] Routine PT Evaluation and Treatment [CONS] Routine Hospital Course: Prolonged stay due to ongoing treatment of weakness/pancreatitis and waiting for placement in [place] so that patient can undergo cholecystectomy and also have GI consult. She may also likely benefit from ERCP. It was planned initially that patient wound transfer to [facility] once a bed became available. [facility] unable to take patient due to continued full census. Call made today to [facility] and patient reviewed with . [facility] feels that they will be able to find a bed for that pt and will be able to provide the needed services of GI consult/Surgery consult/definitive care for the above. Waiting for bed assignment at this time. - Discharge Plan *PRESCRIPTION DRUG MONITORING PROGRAM REVIEWED*: Not Applicable *COPY OF PRESCRIPTION DRUG MONITORING REPORT IN PATIENT KOTA: Not Applicable Home Medications: Home Meds Furosemide [Lasix] 20 mg PO DAILY PRN 03/23/21 [History] Hydroxychloroquine [Plaquenil] 200 mg PO DAILY 03/23/21 [History] hydrALAZINE [Apresoline] 25 mg PO DAILY 03/23/21 [History] methylPREDNISolone [Methylprednisolone] 4 mg PO DAILY 03/23/21 [History] Forms: ED Department Discharge Referrals: PCP,None [Ordering Only Provider] - - Discharge Summary/Plan Comment DC Time >30 min.: No Total # of Minutes for Discharge Time: 30 - General Info Date of Service: 03/27/21 Admission Dx/Problem (Free Text: Pancreatitis, weakness UTI Subjective Update: Patient has been resting well. She is very hungry this morning. She offers no complaints today. She does relate that she feels quite bit better than when she initially arrived. She has been ambulating to the bathroom with some generalized weakness but is about at baseline. No new complaints Functional Status: Reports: Pain Controlled, Tolerating Diet (clear liquids), Ambulating, Urinating. Denies: New Symptoms - Review of Systems General: Reports: Weakness (improving). Denies: Fever, Malaise, Chills, Night Sweats HEENT: Reports: No Symptoms, Glasses Pulmonary: Denies: Shortness of Breath, Pleuritic Chest Pain, Cough, Sputum, Wheezing Cardiovascular: Denies: Chest Pain, Palpitations, Lightheadedness Genitourinary: Reports: No Symptoms Musculoskeletal: Reports: Other (no acute changes from baseline) Skin: Reports: Other (No acute changes) Neurological: Reports: Difficulty Walking (chronic), Weakness (improving). Denies: Confusion, Headache, Trouble Speaking, Change in Speech Psychiatric: Reports: No Symptoms - Patient Data Vitals - Most Recent: Last Vital Signs Temp 36.4 C 03/27/21 07:24 Pulse 73 03/27/21 07:24 Resp 16 03/27/21 07:24 BP 123/61 03/27/21 14:24 Pulse Ox 98 03/27/21 07:24 Weight - Most Recent: 63.14 kg I&O - Last 24 hours: Intake & Output 03/26/21 03/27/21 03/27/21 22:59 06:59 14:59 Intake Total 1760 865 500 Output Total 1740 1400 Balance 20 -535 500 Lab Results - Last 24 hrs: Laboratory Results - last 24 hr 03/24/21 03/26/21 03/27/21 Range/Units 08:40 17:09 07:24 WBC (4.0-10.2) K/uL RBC (3.77-5.09) M/uL Hgb (11.7-15.5) g/dL Hct (34.0-46.0) % MCV (84.0-98.0) fL MCH (28.2-33.3) pg MCHC (31.7-36.0) g/dL RDW (11.2-14.1) % Plt Count (150-350) K/uL Neut % (Auto) (45.0-80.0) % Lymph % (Auto) (10.0-50.0) % Gregory % (Auto) (2.0-14.0) % Eos % (Auto) (0.0-5.0) % Baso % (Auto) (0.0-2.0) % Neut # (Auto) (1.40-7.00) K/uL Lymph # (Auto) (0.50-3.50) K/uL Gregory # (Auto) (0.00-1.00) K/uL Eos # (Auto) (0.00-0.50) K/uL Baso # (Auto) (0.00-0.20) K/uL Sodium (136-145) mmol/L Potassium (3.5-5.1) mmol/L Chloride (98-107) mmol/L Carbon Dioxide (21.0-32.0) mmol/L Anion Gap (7-15) meq/L BUN (7-18) mg/dL Creatinine (0.51-1.17) mg/dL Est Cr Clr Drug Dosing mL/min Estimated GFR (MDRD) mL/min Glucose (70-99) mg/dL POC Glucose 142 H 93 (70-99) mg/dL Calcium (8.5-10.1) mg/dL Total Bilirubin (0.2-1.0) mg/dL AST (15-37) U/L ALT (12-78) U/L Alkaline Phosphatase (46-116) IU/L Total Protein (6.4-8.2) g/dL Albumin (3.4-5.0) g/dL Amylase (25-115) U/L Lipase (73-393) U/L Hepatitis A IgM Ab Negative (Negative) Hep Bs Antigen Negative (Negative) Hep B Core IgM Ab Negative (Negative) Hepatitis C Antibody <0.1 (0.0-0.9) s/co ratio 11/03/21 11/03/21 11/03/21 Range/Units 07:30 07:30 07:30 WBC 5.3 (4.0-10.2) K/uL RBC 2.57 L (3.77-5.09) M/uL Hgb 8.5 L D (11.7-15.5) g/dL Hct 26.7 L (34.0-46.0) % MCV 103.9 H (84.0-98.0) fL MCH 33.1 (28.2-33.3) pg MCHC 31.8 (31.7-36.0) g/dL RDW 12.7 (11.2-14.1) % Plt Count 176 (150-350) K/uL Neut % (Auto) 58.6 (45.0-80.0) % Lymph % (Auto) 27.7 (10.0-50.0) % Gregory % (Auto) 11.0 (2.0-14.0) % Eos % (Auto) 2.3 (0.0-5.0) % Baso % (Auto) 0.4 (0.0-2.0) % Neut # (Auto) 3.10 (1.40-7.00) K/uL Lymph # (Auto) 1.46 (0.50-3.50) K/uL Gregory # (Auto) 0.58 (0.00-1.00) K/uL Eos # (Auto) 0.12 (0.00-0.50) K/uL Baso # (Auto) 0.02 (0.00-0.20) K/uL Sodium 142 (136-145) mmol/L Potassium 4.1 (3.5-5.1) mmol/L Chloride 109 H (98-107) mmol/L Carbon Dioxide 23.5 (21.0-32.0) mmol/L Anion Gap 13.6 (7-15) meq/L BUN 19 H (7-18) mg/dL Creatinine 1.24 H (0.51-1.17) mg/dL Est Cr Clr Drug Dosing 30.49 mL/min Estimated GFR (MDRD) 41 mL/min Glucose 92 (70-99) mg/dL POC Glucose (70-99) mg/dL Calcium 8.3 L (8.5-10.1) mg/dL Total Bilirubin 0.3 (0.2-1.0) mg/dL AST 18 (15-37) U/L ALT 40 (12-78) U/L Alkaline Phosphatase 105 (46-116) IU/L Total Protein 5.2 L (6.4-8.2) g/dL Albumin 2.1 L (3.4-5.0) g/dL Amylase 280 H (25-115) U/L Lipase 1073 H (73-393) U/L Hepatitis A IgM Ab (Negative) Hep Bs Antigen (Negative) Hep B Core IgM Ab (Negative) Hepatitis C Antibody (0.0-0.9) s/co ratio FRANCISCO Results - Last 24 hrs: Microbiology 03/23/21 23:25 Urine Culture - Final Urine, Catheterized Escherichia Coli Med Orders - Current: Current Medications Ceftriaxone Sodium (Ceftriaxone 2 Gm Vial) 2 gm IVPUSH Q24H [facility] Last Admin: 03/27/21 10:23 Dose: 2 gm Documented by: Enoxaparin Sodium (Enoxaparin 30 Mg/0.3 Ml Syringe) 30 mg SUBCUT DAILY@1200 [facility] Last Admin: 03/27/21 14:24 Dose: 30 mg Documented by: Hydralazine HCl (Hydralazine 50 Mg Tab) 25 mg PO TID [facility] Last Admin: 03/27/21 14:24 Dose: 25 mg Documented by: Hydroxychloroquine Sulfate (Hydroxychloroquine 200 Mg Tab) 200 mg PO DAILY [facility] Last Admin: 03/27/21 07:25 Dose: 200 mg Documented by: Dextrose/Sodium Chloride (Dextrose 5%-1/2 Ns) 1,000 mls @ 100 mls/hr IV ASDIRECTED [facility] Last Admin: 03/27/21 12:44 Dose: 100 mls/hr Documented by: Metronidazole 500 mg/ Premix 100 mls @ 100 mls/hr IV Q8H [facility] Last Admin: 03/27/21 10:23 Dose: 100 mls/hr Documented by: Nystatin (Nystatin Crm 30 Gm Tube) 0 gm TOP Q12HR [facility] Last Admin: 03/27/21 07:26 Dose: 1 applic Documented by: Ondansetron HCl (Ondansetron 4 Mg/2 Ml Sdv) 4 mg IVPUSH Q6H PRN PRN Reason: Nausea/Vomiting Sodium Chloride (Sodium Chloride 0.9% 10 Ml Syringe) 10 ml FLUSH ASDIRECTED PRN PRN Reason: Keep Vein Open Last Admin: 03/25/21 11:46 Dose: 10 ml Documented by: Discontinued Medications Enoxaparin Sodium (Enoxaparin 30 Mg/0.3 Ml Syringe) 30 mg SUBCUT DAILY [facility] Last Admin: 03/26/21 08:09 Dose: Not Given Documented by: Furosemide (Furosemide 40 Mg/4 Ml Vial) 40 mg IVPUSH DAILY [facility] Last Admin: 03/26/21 08:04 Dose: 40 mg Documented by: Hydralazine HCl (Hydralazine 50 Mg Tab) 25 mg PO DAILY [facility] Last Admin: 03/26/21 08:04 Dose: 25 mg Documented by: Dextrose/Sodium Chloride (Dextrose 5%-1/2 Ns) 1,000 mls @ 70 mls/hr IV ASDIRECTED [facility] Last Admin: 03/24/21 05:15 Dose: 100 mls/hr Documented by: Magnesium Sulfate/Dextrose 1 (gm/ Premix) 100 mls @ 100 mls/hr IV ONETIME ONE Stop: 03/24/21 18:25 Last Admin: 03/24/21 21:46 Dose: 100 mls/hr Documented by: Magnesium Sulfate/Dextrose (Magnesium Sulfate In D5w 1 Gm/100 Ml) Confirm Administered Dose 1 gm in 100 mls @ as directed .ROUTE .STK-MED ONE Stop: 03/24/21 21:42 Last Admin: 03/24/21 21:46 Dose: Not Given Documented by: Ceftriaxone Sodium 2 gm/ (Sodium Chloride) 100 mls @ 200 mls/hr IV ONETIME ONE Stop: 03/25/21 11:31 Last Admin: 03/25/21 11:44 Dose: 200 mls/hr Documented by: Potassium Chloride/Dextrose/Sod Cl (D5 1/2 Ns W/ 20 Meq/L Kcl) 1,000 mls @ 100 mls/hr IV ASDIRECTED [facility] Last Admin: 03/26/21 00:54 Dose: 100 mls/hr Documented by: Iopamidol (Iopamidol 612 Mg/Ml 100 Ml Bottle) 100 ml IVPUSH ONETIME ONE Stop: 03/24/21 11:02 Last Admin: 03/24/21 11:20 Dose: 100 ml Documented by: Methylprednisolone (Methylprednisolone 4 Mg Tab) 4 mg PO DAILY [facility] Last Admin: 03/26/21 08:07 Dose: 4 mg Documented by: Nystatin (Nystatin Crm 30 Gm Tube) 1 gm TOP BID [facility]ARG[facility] Last Admin: 03/25/21 08:36 Dose: 1 applic Documented by: - Exam Quality Assessment: Reports: DVT Prophylaxis General: Reports: Alert, Oriented, Cooperative, No Acute Distress HEENT: Reports: Pupils Equal, Pupils Reactive, EOMI, Mucous Membr. Moist/[place] Neck: Reports: Supple Lungs: Reports: Clear to Auscultation, Normal Respiratory Effort, Rhonchi Cardiovascular: Reports: Regular Rate, Murmurs GI/Abdominal Exam: Normal Bowel Sounds, Non-Tender, No Distention, Other (Tenderness RUQ improved) (Female) Exam: Deferred Rectal (Female) Exam: Deferred Back Exam: Denies: CVA Tenderness (L), CVA Tenderness (R), Muscle Spasm Extremities: Non-Tender, Normal Capillary Refill, Pedal Edema Skin: Reports: Warm, Dry Neurological: Reports: No New Focal Deficit Psy/Mental Status: Reports: Alert, Normal Affect, Normal Mood
== END 2021-03-27 15:45 | DRG 438 ==
LOC: LL.ED 21:53 → LL.MS 03-24 00:29
PROVIDERS: ADMIT Emergency Medicine; ATTEND Emergency Medicine
DX: K85.90 Acute pancreatitis without necrosis or infection, unspecified (principal); A41.9 Sepsis, unspecified organism; N39.0 Urinary tract infection, site not specified; I13.0 Hypertensive heart and chronic kidney disease with heart failure and stage 1 through stage 4 chronic kidney disease, or unspecified chronic kidney disease; J90 Pleural effusion, not elsewhere classified; N18.9 Chronic kidney disease, unspecified; I31.3 Pericardial effusion (noninflammatory); D63.8 Anemia in other chronic diseases classified elsewhere; N18.4 Chronic kidney disease, stage 4 (severe); R53.1 Weakness; B96.20 Unspecified Escherichia coli [E. coli] as the cause of diseases classified elsewhere; M19.90 Unspecified osteoarthritis, unspecified site; E53.8 Deficiency of other specified B group vitamins; Z85.3 Personal history of malignant neoplasm of breast; Z88.7 Allergy status to serum and vaccine; Z88.8 Allergy status to other drugs, medicaments and biological substances; Z79.899 Other long term (current) drug therapy; K80.20 Calculus of gallbladder without cholecystitis without obstruction; K75.9 Inflammatory liver disease, unspecified; R77.8 Other specified abnormalities of plasma proteins; I50.9 Heart failure, unspecified; Z66 Do not resuscitate; M06.9 Rheumatoid arthritis, unspecified; E11.22 Type 2 diabetes mellitus with diabetic chronic kidney disease; D63.1 Anemia in chronic kidney disease; D51.0 Vitamin B12 deficiency anemia due to intrinsic factor deficiency; N39.46 Mixed incontinence; Z20.822 Contact with and (suspected) exposure to COVID-19; E11.21 Type 2 diabetes mellitus with diabetic nephropathy
CPT/HCPCS: 36415; 51702; 71046; 71260; 74177; 80053; 80074; 81001; 82150; 82947; 83605; 83690; 83735; 83880; 84443; 84484; 85025; 85610; 85730; 87086; 87088; 87186; 87426; 87804; 93005; 93306; 97110-GP; 97162-GP; 97530-GP; 99223; 99232; 99233; 99238; 99285-25; A9270-GY; J0696; J1650; J1940; J3475; J3480; J3490; J7042; J7509; Q9967